=== PATIENT | male | born 1950 | race Caucasian/White ===

== ENCOUNTER 2016-10-24 19:28 | Observation (INO) | payer BC, OTHER ==
[~2016-10-24] VITALS: Ht 175.3 cm; Wt 82.0 kg
[2016-10-24] MEDS ORDERED: ACETAMINOPHEN 325 MG TAB PO PRN (20:00)
[2016-10-24] MEDS ORDERED: NITROGLYCERIN 0.4 MG SL PER TAB CHARGE SL PRN (20:00)
[2016-10-24] MEDS ORDERED: TNR25 PO (20:10)
--- NOTE | 2016-10-24 20:11 | DIAGNOSTIC IMAGING REPORT ---
CHEST ONE VIEW PORTABLE CLINICAL HISTORY: Chest pain COMPARISON STUDY: No previous studies for comparison. FINDINGS: The heart is normal in size. There is minor interstitial thickening. There is no lobar consolidation. There is no overt failure. There are no pleural effusions.[ Postsurgical changes involve the right coracoclavicular joint IMPRESSION: Minor interstitial thickening. No evidence of focal pulmonary consolidation. No evidence of overt failure. Electronically signed by: Dylan Bowers M.D. 10/24/2016 8:10 PM Dictated Date/Time: 10/24/2016 8:09 PM
[2016-10-24 20:25] LABS: HEMATOCRIT 37.8 % (42-52); MEAN CELL VOLUME 87.7 fL (80-100); MEAN CORPUSCULAR HEMOGLOBIN 31.3 pg (25-34); MEAN CORPUSCULAR HGB CONC 35.7 g/dl (32-36); MEAN PLATELET VOLUME 9.4 fL (7.4-10.4); PLATELET COUNT 207 K/uL (130-400); RED BLOOD COUNT 4.31 M/uL (4.7-6.1); WHITE BLOOD COUNT 7.27 K/uL (4.8-10.8)
[2016-10-24] MEDS ORDERED: IPRASOL4 INH (20:30)
[2016-10-24] MEDS ORDERED: ALBU18002 INH (20:30)
[2016-10-24] MEDS ORDERED: CRS10 PO (20:30)
[2016-10-24] MEDS ORDERED: HYDR-4079 PO (20:30)
[2016-10-24] MEDS ORDERED: IV FLUIDS COMPLETED PRN (20:30)
[2016-10-24] MEDS ORDERED: IPRA1AER2 INH (20:30)
[2016-10-24 20:44] VITALS: O2SAT 99; Ht 175.3 cm; Wt 82.0 kg
[2016-10-24 20:45] LABS: ALT/SGPT 24 U/L (12-78); AST/SGOT 16 U/L (15-37); BLOOD UREA NITROGEN 16 mg/dl (7-18); BUN/CREATININE RATIO 14.7 (10-20); CALCIUM 8.7 mg/dl (8.5-10.1); CARBON DIOXIDE 25 mmol/L (21-32); CHLORIDE 107 mmol/L (98-107); GLUCOSE 81 mg/dl (70-99); MAGNESIUM 2.3 mg/dl (1.8-2.4); POTASSIUM 3.9 mmol/L (3.5-5.1); SODIUM 141 mmol/L (136-145)
[2016-10-24] MEDS ORDERED: TAMS0.4C38 PO (20:45)
[2016-10-24] MEDS ORDERED: ASPI-232 PO (20:45)
[2016-10-24 20:48] LABS: PROTHROMBIN TIME (PATIENT) 10.8 SECONDS (9.0-12.0)
[2016-10-24 20:55] LABS: ALB/GLOB RATIO 1.2 (0.9-2); ALKALINE PHOSPHATASE 76 U/L (45-117); CKMB/CK RATIO 1.3 (0-3.0)
[2016-10-24 21:00] VITALS: BP 144/88; PULSE 76; TEMP 36.7; O2SAT 96
[2016-10-24] MEDS ORDERED: LEValbuterol HFA 15GM INHALER INH PRN (21:00)
--- NOTE | 2016-10-24 21:01 | History and Physical ---
History & Physical Date & Time of Service: Oct 24, 2016 at 20:30 Chief Complaint: Cardiac Assessment Primary Care Physician: No Doctor, Assigned History of Present Illness Source: patient, clinic records Patient seen and examined. 66 year old male with PMHx of CAD s/p Stent, HLD, HTN , and BPH is seen as a direct admission after transfer from [facility] for chest pain and afib with RVR. Patient reports that earlier today he was driving his car when he had sudden onset of substernal chest pressure that he described as someone stepping on his chest and rated as a 10/10. He states he had numbness/tingling down his right arm at that time. He reports that he had associated SOB and his friend said he appeared very pale. He pulled over to switch to the passenger seat and when he got out of the car he felt very dizzy. He presented to OSH ED and was given SL nitro and the pain resolved. At OSH patient was found to be in Afib with RVR. He received Aspirin, Potassium, Ativan and Nitro IV. He spontaneously converted to sinus rhythm. [facility] does not have a cardiology service and patient was transferred to [facility] for further workup. Patient reports he currently feels back at baseline. He states he has not had chest pain like this in the past. He reports a stent placed in 2008 and that he has not followed up with cardiology since then. He no longer takes aspirin. Patient reports he has been dealing with URI symptoms all winter. He reports cough with occasional sputum production and associated wheezing. He reports he has been on steroids, penicillin which have finished and continues to use nebulizers and inhalers. On arrival patient is resting comfortably, he is in Sinus rhythm. He denies fevers, chills, current chest pain, palpitations, nausea, vomiting, diarrhea, dysuria, calf pain and edema. He denies history of Afib. He is a lifelong nonsmoker. At OSH Elan were negative x 1, K+ was 3.5, repeat lab work, EKG, CXR are pending. He will be observed for further workup and treatment. Past Medical/Surgical History Medical Problems: (1) BPH (benign prostatic hyperplasia) Status: Chronic (2) CAD (coronary artery disease) Status: Chronic (3) History of left heart catheterization (LHC) Status: Chronic (4) HLD (hyperlipidemia) Status: Chronic (5) HTN (hypertension) Status: Chronic Surgical Problems: (1) H/O shoulder surgery Status: Chronic (2) History of cranial surgery Status: Chronic (3) History of lumbar fusion Status: Chronic (4) S/P surgical manipulation of ankle joint Status: Chronic (5) Stented coronary artery Permanent Comment: 12/2008. Dr. Jean Carlos Galicia Status: Chronic Family History FH: heart disease FATHER ( of [place] age 73) MOTHER ( at age 68) Stroke BROTHER, Onset:60 years & older Social History Smoking Status: Never Smoker Alcohol Use: occasionally Marital Status: Housing status: lives with family Occupational Status: employed Allergies Coded Allergies: No Known Allergies (Unverified , 10/24/16) Home Medications Scheduled Atenolol (Atenolol), 25 MG PO DAILY Ipratropium-Albuterol (Combivent Respimat), 1 PUFFS INH QID Rosuvastatin Calcium (Crestor), 10 MG PO DAILY Scheduled PRN Albuterol Sulfate (Proair Respiclick), 2 PUFFS INH Q4H PRN for SOB/Wheezing Hydrocodone/Acetaminophen 10MG/325MG ([place] 10MG/325MG), 1 TAB PO Q4H PRN for Pain Ipratropium-Albuterol (Duoneb), 1 TREATMENT INH Q4H PRN for SOB/Wheezing Review of Systems Constitutional: No chills, No fever Eyes: No worsening of vision ENT: + nasal symptoms Respiratory: + cough, + shortness of breath, + sputum, + wheezing Cardiovascular: + chest pain, No edema, No palpitations Abdomen: No constipation, No diarrhea, No nausea, No pain, No vomiting Musculoskeletal: No calf pain, No swelling Genitourinary - Male: No dysuria Neurologic: + numbness/tingling, + vertigo Psychiatric: No depression symptoms Endocrine: No fatigue Hematologic / Lymphatic: No abnormal bleeding/bruising, No clotting problems Integumentary: No itch, No rash Allergic / Immunologic: No environmental allergies Physical Exam Vital Signs Date Time Temp Pulse Resp B/P Pulse Ox O2 Delivery O2 Flow Rate FiO2 10/24/16 19:45 73 10/24/16 19:44 99 Nasal Cannula 2.0 10/24/16 19:36 36.5 72 20 132/89 100 Nasal Cannula 2.0 10/24/16 19:36 96 Room Air General Appearance: + pertinent finding (Very pleasant WD/WN 66 year old male lying in bed in NAD ) Head: normocephalic, atraumatic Eyes: PERRL, EOMI, sclerae normal ENT: hearing grossly normal, pharynx normal Neck: supple, no JVD, trachea midline Respiratory/Chest: no respiratory distress, no accessory muscle use, + pertinent finding (Chest tender to palpation sternal area, trace scattered end expiratory wheezes noted. ) Cardiovascular: regular rate, rhythm, no edema, no gallop, no JVD, no murmur, normal peripheral pulses Abdomen/GI: normal bowel sounds, non tender Back: normal inspection, no muscle spasm Extremities/Musculoskelatal: no calf tenderness, normal capillary refill, no pedal edema Neurologic/Psych: alert, oriented x 3, + pertinent finding (no motor or sensory deficits noted on gross exam ) Skin: normal color, warm/dry, no rash Lymphatic: no adenopathy Diagnostics Laboratory Results Last 24 Hours Test 10/24/16 20:13 White Blood Count 7.27 K/uL Red Blood Count 4.31 M/uL Hemoglobin 13.5 g/dL Hematocrit 37.8 % Mean Corpuscular Volume 87.7 fL Mean Corpuscular Hemoglobin 31.3 pg Mean Corpuscular Hemoglobin Concent 35.7 g/dl RDW Standard Deviation 40.7 fL RDW Coefficient of Variation 12.7 % Platelet Count 207 K/uL Mean Platelet Volume 9.4 fL Prothrombin Time 10.8 SECONDS Prothromb Time International Ratio 1.0 Activated Partial Thromboplast Time 26.4 SECONDS Partial Thromboplastin Ratio 1.0 Sodium Level 141 mmol/L Potassium Level 3.9 mmol/L Chloride Level 107 mmol/L Carbon Dioxide Level 25 mmol/L Anion Gap 9.0 mmol/L Blood Urea Nitrogen 16 mg/dl Creatinine 1.10 mg/dl Est Creatinine Clear Calc Drug Dose 72.7 ml/min Estimated GFR () 80.6 Estimated GFR (Non- 69.6 BUN/Creatinine Ratio 14.7 Random Glucose 81 mg/dl Calcium Level 8.7 mg/dl Magnesium Level 2.3 mg/dl Total Bilirubin 0.7 mg/dl Aspartate Amino Transf (AST/SGOT) 16 U/L Alanine Aminotransferase (ALT/SGPT) 24 U/L Alkaline Phosphatase 76 U/L Total Creatine Kinase 163 U/L Creatine Kinase MB 2.2 ng/ml Creatine Kinase MB Ratio 1.3 Troponin I < 0.015 ng/ml Total Protein 6.8 gm/dl Albumin 3.7 gm/dl Globulin 3.1 gm/dl Albumin/Globulin Ratio 1.2 Thyroid Stimulating Hormone (TSH) 1.440 uIu/ml Diagnostic Radiology CXR Per radiologist read: IMPRESSION: Minor interstitial thickening. No evidence of focal pulmonary consolidation. No evidence of overt failure. EKG Sinus Rhythm with 1st degree AV block 73 BPM, QTc 438, no acute ischemic changes noted Impression Assessment and Plan 66 year old male presents from OSH with new onset afib and severe substernal chest pain requiring IV nitro. Patient converted to SR prior to arrival, currently chest pain free CHEST PAIN R/O ACS -Observation in tele -Risk factors:Known CAD s/p stent, HTN, HLD, Age -Has been noncompliant with Aspirin, for at least a year - resume Aspirin now -Serial Elan and EKGs -Elan negative at OSH, repeat pending -Fasting lipid panel in AM -Echo pending to r/o heart wall abnormality -Nitro,prn chest pain -Cardiology consult for further management input appreciated -AHA diet -CBC, PRP, Mg daily -VSS stable, monitor in tele NEW ONSET ATRIAL FIBRILLATION -in Afib with RVR at OSH -converted to NSR -no history of afib previously -[id number] score 3 -will started on Lovenox 1mg/kg for now -Continue atenolol -monitor in tele -cardiology consult placed for further recommendations -Repeat PRP pending to evaluated electrolytes -TSH pending RECENT ACUTE BRONCHITIS -finished steroids and penicillin at home -still some wheezing -no history of asthma/tobacco abuse -Will give Levalbuterol inhalers prn - avoid additional nebs/inhalers d/t recent afib HTN -stable -continue Atenolol HLD -continue statin BPH -has not been taking Flomax in several months CODE STATUS: FULL CODE DVT PROPHYLAXIS: Lovenox 1mg/kg DISPO:observation pending further workup Patient seen in collaboration with Dr. Hines VTE Prophylaxis VTE Risk Assessment Done? Y/N: Yes Risk Level: Moderate Note ATTENDING ADDENDUM Record reviewed. Patient interviewed and examined in ED. Care coordinated with Josiane Rainey PA-C. Please refer to her documentation for patient's history. Briefly, 66 YO male with history of coronary artery disease, s/p PCI @ [facility] 2008. Presented to ED at [facility] today with chest pain + rapid AF. Placed on IV NTG for chest pain. K was 3.5. Received KCl 40 mEq PO. Converted to NSR. [facility] unable to accept patient in transfer, so pt was transferred to [facility]. Chest-pain free upon arrival. EXAM: General- no acute distress VS- as noted Neck- no JVD; carotids 2/2 Lungs- diffuse wheezing Heart- RRR, no murmur or gallop appreciated Abdomen- + BS, soft, nontender Extremities- no pretibial edema or calf tenderness; radial pulses symmetric Neuro- alert, oriented DATA: Lab studies as noted. CXR- mild interstitial thickening. EKG performed at [facility] @ 14:44 reviewed and demonstrated AF at 130 / minute, lateral ST depression. EKG performed at [facility] @ 15:25 reviewed and demonstrated NSR at 85 / minute, no significant ST or T-wave changes. EKG performed at [facility] @ 19:38 reviewed and demonstrated NSR at 73 / minute, no significant T or T-wave changes. . ASSESSMENT AND PLAN: CAD / CHEST PAIN Known coronary artery disease, s/p PCI. Has not had regular Cardiology follow-up. Has not been taking aspirin for some time, although he has been taking atenolol and statin. Suspect that chest pain today was angina precipitated by rapid AF. Check serial cardiac markers. Rx with aspirin, atenolol, statin. Consult Cardiology. He has been followed in the past by Cardiology @ [facility], but would like to establish with [facility]iology at [facility]. ATRIAL FIBRILLATION New onset atrial fibrillation with rapid ventricular response. Serum K 3.5; received KCl replacement. Converted to NSR. TSH and magnesium OK. Continue atenolol. Anticoagulate with enoxaparin pending more data. Check echo. Using albuterol inhaler and Duonebs for wheezing- may be contributing factor. Consult Cardiology. BRONCHOSPASM Nonproductive cough and wheezing for several weeks, treated with antibiotics and steroids. No history of asthma or COPD. Albuterol inhaler and Duonebs may be contributing to AF. Switch to levalbuterol MDI. Please refer to DARLINE Rainey's documentation for discussion of other issues. Rashawn Hines MD .
[2016-10-24] MEDS: ENOXAPARIN 100 MG/1ML SYR SQ SCH (22:10)
[2016-10-24] MEDS: HYDROCODONE/ACETAMI 10/325 TAB PO PRN (22:16)
[2016-10-24 23:39] VITALS: BP 110/65; PULSE 82; TEMP 36.6; O2SAT 96
[2016-10-25 04:07] VITALS: BP 102/60; PULSE 78; TEMP 36.6; O2SAT 95
[2016-10-25 07:19] VITALS: BP 105/64; PULSE 71; TEMP 36.4; O2SAT 95
[2016-10-25 07:22] LABS: CKMB/CK RATIO 1.4 (0-3.0)
[2016-10-25] MEDS ORDERED: TAMSULOSIN HCL 0.4 MG CAP PO SCH (09:00)
[2016-10-25] MEDS: ROSUVASTATIN CALCIUM 10 MG TAB PO SCH (09:09)
[2016-10-25] MEDS: ASPIRIN 81 MG ECTAB PO SCH (09:10)
[2016-10-25] MEDS: ENOXAPARIN 100 MG/1ML SYR SQ SCH (09:11)
[2016-10-25] MEDS: HYDROCODONE/ACETAMI 10/325 TAB PO PRN ×3 (09:15→20:01)
--- NOTE | 2016-10-25 10:37 | CARDIOLOGY CONSULTATION ---
DATE OF CONSULTATION: 10/25/2016 REFERRING PHYSICIAN: Dr. Rashawn Hines. REASON FOR CONSULTATION: Atrial fibrillation, chest pain. HISTORY OF PRESENT ILLNESS: Mr. Vitale is a 66-year-old gentleman who was transferred from [facility] with paroxysmal atrial fibrillation and chest discomfort. The patient developed substernal chest pain while driving his car in the evening 10/24/2016. The pain became quite severe, rated 10/10 with associated shortness of breath and lightheadedness. He presented to [facility] and was treated with aspirin, potassium, Ativan and nitroglycerin. He spontaneously converted to sinus rhythm. He has been pain free since his admission. His troponins are not significantly elevated. Symptoms lasted a total of 25 minutes according to the patient. Recently, he describes some worsening exertional shortness of breath and substernal chest pain with exertion over the past 3-4 weeks. Particularly notes discomfort when he has to climb stairs carrying 2 x 4's. The discomfort caused him to stop and rest. He has run out of sublingual nitroglycerin. He has not followed with cardiology in several years. Currently, pain free. Sinus rhythm on telemetry. No orthopnea or PND. No prior history of congestive heart failure or cardiomyopathy. REVIEW OF SYSTEMS: The pertinent positive noted above, a comprehensive 10-system review is otherwise negative. PAST MEDICAL HISTORY: 1. Chronic coronary disease, history of prior LAD stenting in the setting of exertional angina in 2008. 2. BPH. 3. Dyslipidemia. 4. Hypertension. PAST SURGICAL HISTORY: Shoulder surgery, cranial surgery, lumbar fusion, ankle surgery, LAD RON 2008. FAMILY HISTORY: Father at age 73 from myocardial infarction, brother with stroke in his 60s. SOCIAL HISTORY: Lifelong nonsmoker, denies alcohol or illicit drug use. 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 ALLERGIES: No known drug allergies. HOME MEDICATIONS: 1. Atenolol 25 mg daily. 2. Combivent 1 puff 4 times. 3. Crestor 10 mg daily. 4. Albuterol as needed. 5. [place] as needed. 6. DuoNeb q. 4 hours as needed. 7. Aspirin -- not taking. ECG reviewed from [facility] demonstrates atrial fibrillation with rapid ventricular response. Repeat ECG performed this morning at 8:00 a.m. demonstrates sinus rhythm with a first degree AV block. IMAGING DATA: Chest x-ray demonstrates mild interstitial thickening. No evidence of consolidation or overt congestive heart failure. LABORATORY DATA: Initial troponin less than 0.015, repeat troponin 0.017. Sodium 141, potassium 3.9, chloride 107, CO2 is 25, BUN is 16, creatinine is 1.10. Triglycerides of 304. Total cholesterol 109. His LDL is 12, HDL is 36. TSH 1.440. INR 1.0. White blood cell count 7.27, hemoglobin is 13.5, platelet count is 207. PHYSICAL EXAMINATION: VITAL SIGNS: Temperature is 36.4 degrees centigrade, pulse 71 beats per minute and regular, respiratory rate is 18 breaths per minute, blood pressure 105/64, SaO2 is 95% on room air. GENERAL: NAD, awake, alert and oriented x3. THROAT: His mucous membranes are moist. There is no scleral icterus. The conjunctivae are pink. NECK: Supple. There is no JVD, no HJR carotid bruit. HEART: Regular with a normal S1 and S2. There is no murmur, rub, or gallop. LUNGS: Clear without rales, rhonchi or wheeze. ABDOMEN: Soft, nontender. There is no rebound or guarding. Normal bowel sounds. EXTREMITIES: Warm and dry. There is no clubbing, cyanosis, or edema. NEUROLOGIC: Demonstrates no focal deficit. FINAL IMPRESSION: 1. A 66-year-old male presents with paroxysmal atrial fibrillation with rapid ventricular response. 2. Chronic coronary artery disease with exertional class 2-3 angina as well as significant angina reported during recent episode of atrial fibrillation with rapid ventricular response. History of prior drug-eluting stent implantation to left anterior descending artery. 3. Obesity. 4. Dyslipidemia. 5. Hypertension. 6. Reactive airways disease. 7. Noncompliance of medications. PLAN AND RECOMMENDATIONS: I had a long discussion with the patient regarding his new onset AFib, exertional symptoms, and chest discomfort associated with his episode of AFib with RVR. I am concerned there is progressive obstructive CAD. His cardiac enzymes are negative x 2 sets. Recommend diagnostic cardiac catheterization. Risk, benefits and alternatives were discussed in detail. The patient is agreeable. We would recommend bare metal stenting at this time given the need for long-term anticoagulation in the setting of new onset atrial fibrillation. He received a dose of subcutaneous Lovenox this morning, therefore, the procedure will be postponed. I will discontinue lovenox and begin IV heparin infusion this evening. Further recommendations regarding Coumadin versus DOAC pending results of cardiac catheterization. I will increase atenolol to 50 mg daily. I have also given an additional 25 mg of atenolol at this time. Thank you for allowing me to take part in the care of your patient. [place]
[2016-10-25 11:31] VITALS: BP 117/75; PULSE 70; TEMP 36.4; O2SAT 93
--- NOTE | 2016-10-25 11:50 | ECHOCARDIOGRAM REPORT ---
*NOTICE TO RECEIVING CONSTITUTION PARTY AGENCY This information is strictly Confidential and protected under [place] law. [place] law prohibits you from making any further disclosure of this information unless further disclosure is expressly permitted by the written consent of the person to whom it pertains or is authorized by law. A general authorization for the release of medical or other information is not sufficient for this purpose. Hospital accepts no responsibility if the information is made available to any other person, INCLUDING THE PATIENT. Interpretation Summary * Name: ALEX GUY Study Date: 10/25/2016 10:42 AM BP: 105/64 mmHg * Patient Location: C.2T\S\E215\S\1 HR: 71 * : 1950 (M/d/yyyy) Gender: Male Height: 69 in * Age: 66 yrs Ethnicity: CA Weight: 195 lb * Ordering Physician: Jed Moore * Performed By: Almaz Mckeon RDCS * * Reason For Study: Atrial fibrillation * BSA: 2.0 m2 * The study was technically adequate. * There is no comparison study available. * -- Conclusions -- * Ejection Fraction = 55-60%. * There is mild concentric left ventricular hypertrophy. * Grade I diastolic dysfunction, (abnormal relaxation pattern). * Borderline dilated ascending aorta. * No regional wall motion abnormalities noted. Procedure Details * A complete two-dimensional transthoracic echocardiogram was performed (2D, M-mode, Doppler and color flow Doppler). Left Ventricle * The left ventricle is normal in size. * There is mild concentric left ventricular hypertrophy. * Ejection Fraction = 55-60%. * Left ventricular systolic function is normal. * No regional wall motion abnormalities noted. Right Ventricle * The right ventricle is normal size. * The right ventricular systolic function is normal as assessed by tricuspid annular plane systolic excursion (TAPSE) (normal >1.5 cm). Atria * The left atrial size is normal. * Right atrial size is normal. * There is no evidence of atrial septal defect, but resolution does not allow assessment for a patent foramen ovale. Mitral Valve * The mitral valve is normal. * There is no mitral valve stenosis. * Significant mitral regurgitation is absent. Tricuspid Valve * The tricuspid valve is normal. * There is no tricuspid stenosis. * Significant tricuspid regurgitation is absent. Aortic Valve * The aortic valve is trileaflet. * Aortic stenosis is absent. * There is no significant aortic regurgitation. Pulmonic Valve * The pulmonary valve is not well seen, but the Doppler examination is normal without significant regurgitation or stenosis. Great Vessels * The aortic root is normal size. * Borderline dilated ascending aorta. Pericardium/Pleural * There is no pericardial effusion. Great Vessels * Normal inferior vena cava diameter and respiratory variation suggests normal central venous pressure. Left Ventricular Diastolic Function * Grade I diastolic dysfunction, (abnormal relaxation pattern). MMode 2D Measurements and Calculations IVSd 1.4 cm LVIDd 4.1 cm LVIDs 2.6 cm LVPWd 1.2 cm IVS/LVPW 1.1 FS 36.4 % EDV(Teich) 75.6 ml ESV(Teich) 25.3 ml EF(Teich) 66.6 % EDV(cubed) 70.6 ml ESV(cubed) 18.2 ml EF(cubed) 74.3 % LV mass(C)d 195.9 grams LV mass(C)dI 95.9 grams/m\S\2 CO(Teich) 3.3 l/min CI(Teich) 1.6 l/min/m\S\2 SV(Teich) 50.4 ml SI(Teich) 24.6 ml/m\S\2 CO(cubed) 3.5 l/min CI(cubed) 1.7 l/min/m\S\2 SV(cubed) 52.4 ml SI(cubed) 25.7 ml/m\S\2 Ao root diam 3.7 cm Ao root area 10.6 cm\S\2 ACS 2.0 cm LA dimension 2.8 cm asc Aorta Diam 3.8 cm LA/Ao 0.76 LVOT diam 2.0 cm LVOT area 3.3 cm\S\2 LVAd ap4 33.9 cm\S\2 LVLd ap4 8.6 cm EDV(MOD-sp4) 108.0 ml LVAs ap4 18.8 cm\S\2 LVLs ap4 6.8 cm ESV(MOD-sp4) 42.0 ml EF(MOD-sp4) 61.1 % LVAd ap2 24.6 cm\S\2 LVLd ap2 7.8 cm EDV(MOD-sp2) 62.8 ml LVAs ap2 13.5 cm\S\2 LVLs ap2 6.3 cm ESV(MOD-sp2) 23.9 ml EF(MOD-sp2) 61.9 % CO(MOD-sp4) 4.4 l/min CI(MOD-sp4) 2.1 l/min/m\S\2 SV(MOD-sp4) 66.0 ml SI(MOD-sp4) 32.3 ml/m\S\2 CO(MOD-sp2) 2.6 l/min CI(MOD-sp2) 1.3 l/min/m\S\2 SV(MOD-sp2) 38.9 ml SI(MOD-sp2) 19.0 ml/m\S\2 Doppler Measurements and Calculations MV E max roly 88.3 cm/sec MV A max roly 83.3 cm/sec MV E/A 1.1 MV dec time 0.24 sec Ao V2 max 110.2 cm/sec Ao max PG 4.9 mmHg Ao max PG (full) 1.1 mmHg DOMO(V,A) 2.9 cm\S\2 DOMO(V,D) 2.9 cm\S\2 LV V1 max PG 3.8 mmHg LV V1 max 97.5 cm/sec PA V2 max 82.4 cm/sec PA max PG 2.7 mmHg PA acc slope 348.8 cm/sec\S\2 PA acc time 0.17 sec TR max roly 102.6 cm/sec PA pr(Accel) 4.5 mmHg
[2016-10-25 15:18] VITALS: BP 111/64; PULSE 71; TEMP 36.5; O2SAT 95
[2016-10-25] MEDS ORDERED: ALBUTEROL HFA 8 GM INHALER INH PRN (16:00)
--- NOTE | 2016-10-25 18:49 | Progress Note ---
Medicine Progress Note Date & Time of Visit: Oct 25, 2016 at 18:40. Subjective Patient seen and examined. Feeling well. Denies chest pain/pressure. Requesting albuterol inhaler prn. Objective Last 8 Hrs Date Time Temp Pulse Resp B/P Pulse Ox O2 Delivery O2 Flow Rate FiO2 10/25/16 16:00 Room Air 10/25/16 15:18 36.5 71 18 111/64 95 Room Air 10/25/16 12:00 Room Air 10/25/16 11:31 36.4 70 18 117/75 93 Room Air Physical Exam: General-awake; alert; NAD Eyes-EOMI; no scleral icterus Neck-no stridor; trachea midline Lungs-scattered end expiratory wheezes Heart-RRR; no m/r/g Abdomen-soft; NTND; nBS Extremities-no c/c/e; no deformity Neuro-no gross focal deficits Laboratory Results: Last 24 Hours Test 10/24/16 20:13 10/25/16 05:51 White Blood Count 7.27 K/uL Red Blood Count 4.31 M/uL Hemoglobin 13.5 g/dL Hematocrit 37.8 % Mean Corpuscular Volume 87.7 fL Mean Corpuscular Hemoglobin 31.3 pg Mean Corpuscular Hemoglobin Concent 35.7 g/dl RDW Standard Deviation 40.7 fL RDW Coefficient of Variation 12.7 % Platelet Count 207 K/uL Mean Platelet Volume 9.4 fL Prothrombin Time 10.8 SECONDS Prothromb Time International Ratio 1.0 Activated Partial Thromboplast Time 26.4 SECONDS Partial Thromboplastin Ratio 1.0 Sodium Level 141 mmol/L Potassium Level 3.9 mmol/L Chloride Level 107 mmol/L Carbon Dioxide Level 25 mmol/L Anion Gap 9.0 mmol/L Blood Urea Nitrogen 16 mg/dl Creatinine 1.10 mg/dl Est Creatinine Clear Calc Drug Dose 72.7 ml/min Estimated GFR () 80.6 Estimated GFR (Non- 69.6 BUN/Creatinine Ratio 14.7 Random Glucose 81 mg/dl Calcium Level 8.7 mg/dl Magnesium Level 2.3 mg/dl Total Bilirubin 0.7 mg/dl Aspartate Amino Transf (AST/SGOT) 16 U/L Alanine Aminotransferase (ALT/SGPT) 24 U/L Alkaline Phosphatase 76 U/L Total Creatine Kinase 163 U/L 136 U/L Creatine Kinase MB 2.2 ng/ml 1.9 ng/ml Creatine Kinase MB Ratio 1.3 1.4 Troponin I < 0.015 ng/ml 0.017 ng/ml Total Protein 6.8 gm/dl Albumin 3.7 gm/dl Globulin 3.1 gm/dl Albumin/Globulin Ratio 1.2 Thyroid Stimulating Hormone (TSH) 1.440 uIu/ml Hepatitis C Antibody Screen NEG Triglycerides Level 304 mg/dl Cholesterol Level 109 mg/dl HDL Cholesterol 36 mg/dl LDL Cholesterol, Calculated 12 mg/dl VLDL Cholesterol, Calculated 61 mg/dl Cholesterol/HDL Ratio 3.0 Assessment & Plan 66 year old male presents from OSH with new onset afib and severe substernal chest pain requiring IV nitro. Patient converted to SR prior to arrival, currently chest pain free CHEST PAIN, H/O CAD -Has been noncompliant with Aspirin, for at least a year - resumed Aspirin -ACS r/o negative -Echo with no regional wall motion abnormalities -Nitro prn chest pain -Cardiology consulted -Plan for heart catheterization on Friday NEW ONSET ATRIAL FIBRILLATION -in Afib with RVR at OSH -converted to NSR -no history of afib previously -[id number] score 3 -Received Lovenox --> change to heparin drip -Atenolol increased -Cardiology consulted -TSH normal RECENT ACUTE BRONCHITIS -finished steroids and penicillin at home -no history of asthma/tobacco abuse -continue albuterol inhaler prn HTN -Atenolol increased HLD -Continue statin BPH -has not been taking Flomax in several months CODE STATUS: FULL CODE Consultants: Cardiology Procedures: TTE * Ejection Fraction = 55-60%. * There is mild concentric left ventricular hypertrophy. * Grade I diastolic dysfunction, (abnormal relaxation pattern). * Borderline dilated ascending aorta. * No regional wall motion abnormalities noted. Current Inpatient Medications: Current Inpatient Medications Medications (Trade) Dose Ordered Sig/Robe Route Start Time Stop Time Status Last Admin Dose Admin Acetaminophen (Tylenol Tab) 650 mg Q4H PRN PO 10/24/16 20:00 11/23/16 19:59 Nitroglycerin (Nitrostat Tab) 0.4 mg UD PRN SL 10/24/16 20:00 11/23/16 19:59 Miscellaneous (Iv Fluids Completed) 1 ea PRN PRN N/A 10/24/16 20:30 10/24/17 20:29 Aspirin (Ecotrin Tab) 81 mg DAILY PO 10/25/16 09:00 11/24/16 08:59 10/25/16 09:10 81 MG Acetaminophen/ Hydrocodone Bitart ([place] 10/325 Tab) 1 tab Q4H PRN PO 10/24/16 20:45 11/07/16 20:44 10/25/16 13:46 1 TAB Rosuvastatin Calcium (Crestor Tab) 10 mg DAILY PO 10/25/16 09:00 11/24/16 08:59 10/25/16 09:09 10 MG Enoxaparin Sodium (Lovenox Inj) 90 mg Q12 SQ 10/24/16 21:00 11/23/16 20:59 10/25/16 09:11 90 MG Atenolol (Tenormin Tab) 50 mg DAILY PO 10/26/16 09:00 11/25/16 08:59 Albuterol (Ventolin Hfa Inhaler) 2 puffs Q6 PRN INH 10/25/16 16:00 11/24/16 15:59
[2016-10-25 18:53] VITALS: BP 113/69; PULSE 67; TEMP 36.5; O2SAT 95
[2016-10-25 19:30] LABS: BASO % 0.6 %; BASO ABS # 0.04 K/uL (0-0.2); EOS % 10.2 %; HEMATOCRIT 36.9 % (42-52); IG% 0.2 %; LYMPH % 34.6 %; LYMPH ABS # 2.21 K/uL (1.2-3.4); MEAN CELL VOLUME 86.8 fL (80-100); MEAN CORPUSCULAR HEMOGLOBIN 31.1 pg (25-34); MEAN PLATELET VOLUME 9.1 fL (7.4-10.4); MONO % 8.6 %; NEUT % 45.8 %; PLATELET COUNT 197 K/uL (130-400); RED BLOOD COUNT 4.25 M/uL (4.7-6.1); WHITE BLOOD COUNT 6.39 K/uL (4.8-10.8)
[2016-10-25 19:32] LABS: COMPLETE YES; MEAN CORPUSCULAR HGB CONC 35.8 g/dl (32-36)
[2016-10-25 19:42] LABS: PARTIAL THROMBOPLASTIN RATIO 1.2; PROTHROMBIN TIME (PATIENT) 10.6 SECONDS (9.0-12.0)
[2016-10-25] MEDS: HEPARIN 25,000 UNIT/500ML D5W 500 ML IV PRN (21:13)
[2016-10-25 23:30] VITALS: BP 112/72; PULSE 82; TEMP 36.7; O2SAT 97
[2016-10-26] VITALS (9 sets, daily range): BP systolic 114–135; BP diastolic 68–75; PULSE 62–72; TEMP 36.4–36.9; O2SAT 93–98
[2016-10-26] MEDS: HYDROCODONE/ACETAMI 10/325 TAB PO PRN ×2 (03:05→07:18)
[2016-10-26 03:30] LABS: HEMATOCRIT 36.8 % (42-52); MEAN CELL VOLUME 86.8 fL (80-100); MEAN CORPUSCULAR HEMOGLOBIN 31.4 pg (25-34); MEAN CORPUSCULAR HGB CONC 36.1 g/dl (32-36); MEAN PLATELET VOLUME 9.4 fL (7.4-10.4); PLATELET COUNT 204 K/uL (130-400); RED BLOOD COUNT 4.24 M/uL (4.7-6.1); WHITE BLOOD COUNT 7.45 K/uL (4.8-10.8)
[2016-10-26 03:52] LABS: PARTIAL THROMBOPLASTIN RATIO 1.8
[2016-10-26 03:53] LABS: BUN/CREATININE RATIO 13.2 (10-20); CALCIUM 8.2 mg/dl (8.5-10.1); CREATININE 1.1 mg/dl (0.60-1.40)
[2016-10-26] MEDS ORDERED: HEPARIN IV BOLUS 3,000 UNIT in SYRINGE 0 ML IV STA (04:21)
[2016-10-26] MEDS: HEPARIN 25,000 UNIT/500ML D5W 500 ML IV PRN ×2 (04:28→14:50)
[2016-10-26] MEDS: ROSUVASTATIN CALCIUM 10 MG TAB PO SCH (07:15)
[2016-10-26] MEDS: ASPIRIN 81 MG ECTAB PO SCH (07:16)
--- NOTE | 2016-10-26 09:18 | Cardiology Follow-Up ---
Subjective General Date of Service: Oct 26, 2016. Pt evaluation today including: conversation w/ patient, physical exam, chart review, lab review, review of studies, review of inpatient medication list History of Present Illness The patient is a 66 year old male seen in follow up. Feels well today. No recurrent chest discomfort at rest. No recurrent AF on telemetry. Tolerating diet and medications. Allergies Coded Allergies: No Known Allergies (Unverified , 10/24/16) Social History Smoking Status: Never Smoker Hx Alcohol Use - Type And Amou: Yes (OCC BEER ) Hx Substance Use - Type And Am: No Review of Systems Respiratory: No cough, No dyspnea at rest, No dyspnea on exertion, No shortness of breath, No sputum, No wheezing Cardiac: No PND, No chest pain, No claudication, No edema, No orthopnea, No palpitations Physical Exam Vital Signs Last Vital Signs Documentation Date Time Temp Pulse Resp B/P Pulse Ox O2 Delivery O2 Flow Rate FiO2 10/26/16 09:07 93 Room Air 10/26/16 07:20 36.5 67 18 115/72 10/24/16 20:44 2.0 Physical Exam Constitutional: General Apperance: well-nourished Level of Distress: NAD Head: normocephalic, atraumatic ENMT: normal ENT inspection Lungs: Auscultation: no rales/crackles, no rhonchi, expiratory wheezing Cardiovascular: Heart Auscultation: RRR, normal S1, normal S2, no murmurs, no rubs, no gallops Peripheral Pulses: Radial Pulse: normal on the left, normal on the right Femoral Pulse: normal on the right Abdomen: Bowel Sounds: normal Inspection & Palpation: soft, non-distended, no tenderness, guarding & rebound Extremities: no cyanosis, no edema, no clubbing, no ulcers Neurologic: Gait & Station: pertinent finding (No focal motor deficit) Cranial Nerves: grossly intact Assessment and Plan Assessment and Plan FINAL IMPRESSION: 1. Paroxysmal atrial fibrillation with rapid ventricular response. - resolved 2. Chronic coronary artery disease, prior LAD RON with exertional class 2-3 angina as well as significant angina reported during recent episode of atrial fibrillation with rapid ventricular response. 3. Obesity. 4. Dyslipidemia. 5. Hypertension. 6. Reactive airways disease. 7. Noncompliance of medications. PLAN AND RECOMMENDATIONS: Continue IV heparin, aspirin, statin, and beta randy. Cardiac catheterization friday. DOAC vs. coumadin pending result of catheterization. Continue telemetry. Will continue to follow. Laboratory Results Last 24 Hours Test 10/25/16 19:21 10/26/16 03:00 White Blood Count 6.39 K/uL 7.45 K/uL Red Blood Count 4.25 M/uL 4.24 M/uL Hemoglobin 13.2 g/dL 13.3 g/dL Hematocrit 36.9 % 36.8 % Mean Corpuscular Volume 86.8 fL 86.8 fL Mean Corpuscular Hemoglobin 31.1 pg 31.4 pg Mean Corpuscular Hemoglobin Concent 35.8 g/dl 36.1 g/dl Platelet Count 197 K/uL 204 K/uL Mean Platelet Volume 9.1 fL 9.4 fL Neutrophils (%) (Auto) 45.8 % Lymphocytes (%) (Auto) 34.6 % Monocytes (%) (Auto) 8.6 % Eosinophils (%) (Auto) 10.2 % Basophils (%) (Auto) 0.6 % Neutrophils # (Auto) 2.93 K/uL Lymphocytes # (Auto) 2.21 K/uL Monocytes # (Auto) 0.55 K/uL Eosinophils # (Auto) 0.65 K/uL Basophils # (Auto) 0.04 K/uL RDW Standard Deviation 40.5 fL 40.1 fL RDW Coefficient of Variation 12.6 % 12.5 % Immature Granulocyte % (Auto) 0.2 % Immature Granulocyte # (Auto) 0.01 K/uL Prothrombin Time 10.6 SECONDS Prothromb Time International Ratio 1.0 Activated Partial Thromboplast Time 30.8 SECONDS 46.2 SECONDS Partial Thromboplastin Ratio 1.2 1.8 Sodium Level 141 mmol/L Potassium Level 4.0 mmol/L Chloride Level 106 mmol/L Carbon Dioxide Level 29 mmol/L Anion Gap 6.0 mmol/L Blood Urea Nitrogen 15 mg/dl Creatinine 1.10 mg/dl Est Creatinine Clear Calc Drug Dose 72.8 ml/min Estimated GFR () 80.6 Estimated GFR (Non- 69.6 BUN/Creatinine Ratio 13.2 Random Glucose 93 mg/dl Calcium Level 8.2 mg/dl Chemistry Specimen Hemolysis
[2016-10-26 11:30] LABS: PARTIAL THROMBOPLASTIN RATIO 2.5
[2016-10-26] MEDS ORDERED: POLYETHYLENE (MIRALAX) 17 GM PACK PO PRN (15:30)
--- NOTE | 2016-10-26 16:40 | Progress Note ---
Medicine Progress Note Date & Time of Visit: Oct 26, 2016 at 16:38. Subjective Patient seen and examined. Denies chest pain/pressure. Occasionally feeling SOB. Objective Last 8 Hrs Date Time Temp Pulse Resp B/P Pulse Ox O2 Delivery O2 Flow Rate FiO2 10/26/16 16:18 93 Room Air 10/26/16 15:42 36.4 69 19 128/74 95 Room Air 10/26/16 12:09 93 Room Air 10/26/16 11:20 36.7 67 18 118/75 93 Room Air 10/26/16 09:07 93 Room Air Physical Exam: General-awake; alert; NAD Eyes-EOMI; no scleral icterus Neck-no stridor; trachea midline Lungs-CTA bilaterally; no wheezes/crackles Heart-RRR; no m/r/g Abdomen-soft; NTND; nBS Extremities-no c/c/e; no deformity Neuro-no gross focal deficits Laboratory Results: Last 24 Hours Test 10/25/16 19:21 10/26/16 03:00 10/26/16 11:02 White Blood Count 6.39 K/uL 7.45 K/uL Red Blood Count 4.25 M/uL 4.24 M/uL Hemoglobin 13.2 g/dL 13.3 g/dL Hematocrit 36.9 % 36.8 % Mean Corpuscular Volume 86.8 fL 86.8 fL Mean Corpuscular Hemoglobin 31.1 pg 31.4 pg Mean Corpuscular Hemoglobin Concent 35.8 g/dl 36.1 g/dl Platelet Count 197 K/uL 204 K/uL Mean Platelet Volume 9.1 fL 9.4 fL Neutrophils (%) (Auto) 45.8 % Lymphocytes (%) (Auto) 34.6 % Monocytes (%) (Auto) 8.6 % Eosinophils (%) (Auto) 10.2 % Basophils (%) (Auto) 0.6 % Neutrophils # (Auto) 2.93 K/uL Lymphocytes # (Auto) 2.21 K/uL Monocytes # (Auto) 0.55 K/uL Eosinophils # (Auto) 0.65 K/uL Basophils # (Auto) 0.04 K/uL RDW Standard Deviation 40.5 fL 40.1 fL RDW Coefficient of Variation 12.6 % 12.5 % Immature Granulocyte % (Auto) 0.2 % Immature Granulocyte # (Auto) 0.01 K/uL Prothrombin Time 10.6 SECONDS Prothromb Time International Ratio 1.0 Activated Partial Thromboplast Time 30.8 SECONDS 46.2 SECONDS 65.3 SECONDS Partial Thromboplastin Ratio 1.2 1.8 2.5 Sodium Level 141 mmol/L Potassium Level 4.0 mmol/L Chloride Level 106 mmol/L Carbon Dioxide Level 29 mmol/L Anion Gap 6.0 mmol/L Blood Urea Nitrogen 15 mg/dl Creatinine 1.10 mg/dl Est Creatinine Clear Calc Drug Dose 72.8 ml/min Estimated GFR () 80.6 Estimated GFR (Non- 69.6 BUN/Creatinine Ratio 13.2 Random Glucose 93 mg/dl Calcium Level 8.2 mg/dl Chemistry Specimen Hemolysis Assessment & Plan 66 year old male presented from OSH with new onset afib and severe substernal chest pain requiring IV nitro. Patient converted to SR prior to arrival, remains chest pain free CHEST PAIN, H/O CAD -Has been noncompliant with Aspirin, for at least a year - resumed Aspirin -ACS r/o negative -Echo with no regional wall motion abnormalities -Nitro prn chest pain -Cardiology consulted -Plan for heart catheterization on Friday NEW ONSET ATRIAL FIBRILLATION -in Afib with RVR at OSH -converted to NSR -no history of afib previously -[id number] score 3 -Received Lovenox --> changed to heparin drip -Atenolol increased -Cardiology consulted -TSH normal RECENT ACUTE BRONCHITIS -finished steroids and penicillin at home -no history of asthma/tobacco abuse -continue albuterol inhaler prn HTN -Atenolol increased HLD -Continue statin BPH -has not been taking Flomax for several months CODE STATUS: FULL CODE Consultants: Cardiology Procedures: TTE * Ejection Fraction = 55-60%. * There is mild concentric left ventricular hypertrophy. * Grade I diastolic dysfunction, (abnormal relaxation pattern). * Borderline dilated ascending aorta. * No regional wall motion abnormalities noted. Current Inpatient Medications: Current Inpatient Medications Medications (Trade) Dose Ordered Sig/Robe Route Start Time Stop Time Status Last Admin Dose Admin Acetaminophen (Tylenol Tab) 650 mg Q4H PRN PO 10/24/16 20:00 11/23/16 19:59 Nitroglycerin (Nitrostat Tab) 0.4 mg UD PRN SL 10/24/16 20:00 11/23/16 19:59 Miscellaneous (Iv Fluids Completed) 1 ea PRN PRN N/A 10/24/16 20:30 10/24/17 20:29 Aspirin (Ecotrin Tab) 81 mg DAILY PO 10/25/16 09:00 11/24/16 08:59 10/26/16 07:16 81 MG Acetaminophen/ Hydrocodone Bitart ([place] 10/325 Tab) 1 tab Q4H PRN PO 10/24/16 20:45 11/07/16 20:44 10/26/16 07:18 1 TAB Rosuvastatin Calcium (Crestor Tab) 10 mg DAILY PO 10/25/16 09:00 11/24/16 08:59 10/26/16 07:15 10 MG Atenolol (Tenormin Tab) 50 mg DAILY PO 10/26/16 09:00 11/25/16 08:59 10/26/16 07:16 50 MG Albuterol 2 puffs 2 puffs Q6 PRN INH 10/25/16 16:00 11/24/16 15:59 Heparin Sodium/ Dextrose (Heparin 25,000 Unit/500ml D5W) 500 ml @ 31 mls/hr Q16H8M PRN IV 10/25/16 21:00 11/24/16 20:59 10/26/16 14:50 31 MLS/HR Polyethylene (Miralax Powder Packet) 17 gm DAILY PRN PO 10/26/16 15:30 11/25/16 15:29
[2016-10-27] VITALS (9 sets, daily range): BP systolic 100–133; BP diastolic 67–79; PULSE 58–68; TEMP 36.4–36.8; O2SAT 93–97
[2016-10-27 05:32] LABS: HEMATOCRIT 38.5 % (42-52); MEAN CELL VOLUME 85.6 fL (80-100); MEAN CORPUSCULAR HEMOGLOBIN 30.9 pg (25-34); MEAN CORPUSCULAR HGB CONC 36.1 g/dl (32-36); MEAN PLATELET VOLUME 9.1 fL (7.4-10.4); PLATELET COUNT 195 K/uL (130-400); WHITE BLOOD COUNT 6.11 K/uL (4.8-10.8)
[2016-10-27 05:51] LABS: PARTIAL THROMBOPLASTIN RATIO 2.5
[2016-10-27] MEDS: ASPIRIN 81 MG ECTAB PO SCH (07:10)
[2016-10-27] MEDS: ROSUVASTATIN CALCIUM 10 MG TAB PO SCH (07:10)
--- NOTE | 2016-10-27 09:28 | Progress Note ---
Medicine Progress Note Date & Time of Visit: Oct 27, 2016 at 09:25. Subjective Patient seen and examined. Denies chest pain or SOB. Objective Last 8 Hrs Date Time Temp Pulse Resp B/P Pulse Ox O2 Delivery O2 Flow Rate FiO2 10/27/16 08:49 93 Room Air 10/27/16 07:33 36.6 58 18 129/67 95 Room Air 10/27/16 04:00 Room Air 10/27/16 03:30 36.4 60 18 121/67 94 Room Air Physical Exam: General-awake; alert; NAD Eyes-EOMI; no scleral icterus Neck-no stridor; trachea midline Lungs-CTA bilaterally; no wheezes/crackles Heart-RRR; no m/r/g Abdomen-soft; NTND; nBS Extremities-no c/c/e; no deformity Neuro-no gross focal deficits Laboratory Results: Last 24 Hours Test 10/26/16 11:02 10/27/16 05:26 Activated Partial Thromboplast Time 65.3 SECONDS 64.9 SECONDS Partial Thromboplastin Ratio 2.5 2.5 White Blood Count 6.11 K/uL Red Blood Count 4.50 M/uL Hemoglobin 13.9 g/dL Hematocrit 38.5 % Mean Corpuscular Volume 85.6 fL Mean Corpuscular Hemoglobin 30.9 pg Mean Corpuscular Hemoglobin Concent 36.1 g/dl RDW Standard Deviation 38.1 fL RDW Coefficient of Variation 12.3 % Platelet Count 195 K/uL Mean Platelet Volume 9.1 fL Assessment & Plan 66 year old male presented from OSH with new onset afib and severe substernal chest pain requiring IV nitro. Patient converted to SR prior to arrival, remains chest pain free. CHEST PAIN, H/O CAD -Has been noncompliant with Aspirin, for at least a year - resumed Aspirin -ACS r/o negative -Echo with no regional wall motion abnormalities -Nitro prn chest pain -Cardiology consulted -Plan for heart catheterization on Friday NEW ONSET ATRIAL FIBRILLATION -Afib with RVR at OSH, and then converted to NSR -No history of Afib previously -[id number] score 3 -Received Lovenox --> changed to heparin drip (hold at midnight for heart catheterization Friday) -Atenolol increased -Cardiology consulted -TSH normal RECENT ACUTE BRONCHITIS -Finished steroids and penicillin at home -Continue albuterol inhaler PRN HTN -Atenolol increased HLD -Continue statin BPH -Has not been taking Flomax for several months CODE STATUS: FULL CODE Consultants: Cardiology Procedures: TTE * Ejection Fraction = 55-60%. * There is mild concentric left ventricular hypertrophy. * Grade I diastolic dysfunction, (abnormal relaxation pattern). * Borderline dilated ascending aorta. * No regional wall motion abnormalities noted. Current Inpatient Medications: Current Inpatient Medications Medications (Trade) Dose Ordered Sig/Robe Route Start Time Stop Time Status Last Admin Dose Admin Acetaminophen (Tylenol Tab) 650 mg Q4H PRN PO 10/24/16 20:00 11/23/16 19:59 Nitroglycerin (Nitrostat Tab) 0.4 mg UD PRN SL 10/24/16 20:00 11/23/16 19:59 Miscellaneous (Iv Fluids Completed) 1 ea PRN PRN N/A 10/24/16 20:30 10/24/17 20:29 Aspirin (Ecotrin Tab) 81 mg DAILY PO 10/25/16 09:00 11/24/16 08:59 10/27/16 07:10 81 MG Acetaminophen/ Hydrocodone Bitart ([place] 10/325 Tab) 1 tab Q4H PRN PO 10/24/16 20:45 11/07/16 20:44 10/26/16 07:18 1 TAB Rosuvastatin Calcium (Crestor Tab) 10 mg DAILY PO 10/25/16 09:00 11/24/16 08:59 10/27/16 07:10 10 MG Atenolol (Tenormin Tab) 50 mg DAILY PO 10/26/16 09:00 11/25/16 08:59 10/27/16 07:10 50 MG Albuterol 2 puffs 2 puffs Q6 PRN INH 10/25/16 16:00 11/24/16 15:59 Heparin Sodium/ Dextrose (Heparin 25,000 Unit/500ml D5W) 500 ml @ 31 mls/hr Q16H8M PRN IV 10/25/16 21:00 11/24/16 20:59 10/26/16 14:50 31 MLS/HR Polyethylene (Miralax Powder Packet) 17 gm DAILY PRN PO 10/26/16 15:30 11/25/16 15:29
--- NOTE | 2016-10-27 11:09 | Cardiology Follow-Up ---
Subjective General Date of Service: Oct 27, 2016. Pt evaluation today including: conversation w/ patient, physical exam, chart review, lab review, review of studies, review of inpatient medication list History of Present Illness The patient is a 66 year old male seen in follow up. Feels well today. No recurrent chest discomfort at rest. No recurrent AF on telemetry. Tolerating diet and medications. Offers no complaints. Allergies Coded Allergies: No Known Allergies (Unverified , 10/24/16) Social History Smoking Status: Never Smoker Hx Alcohol Use - Type And Amou: Yes (OCC BEER ) Hx Substance Use - Type And Am: No Review of Systems Respiratory: No cough, No dyspnea at rest, No dyspnea on exertion, No hemoptysis, No shortness of breath, No sputum, No wheezing Cardiac: No PND, No chest pain, No claudication, No edema, No orthopnea, No palpitations Physical Exam Vital Signs Last Vital Signs Documentation Date Time Temp Pulse Resp B/P Pulse Ox O2 Delivery O2 Flow Rate FiO2 10/27/16 08:49 93 Room Air 10/27/16 07:33 36.6 58 18 129/67 10/24/16 20:44 2.0 Physical Exam Constitutional: General Apperance: well-nourished Level of Distress: NAD Head: normocephalic, atraumatic ENMT: normal ENT inspection Lungs: Auscultation: no rales/crackles, no rhonchi, expiratory wheezing Cardiovascular: Heart Auscultation: RRR, normal S1, normal S2, no murmurs, no rubs, no gallops Peripheral Pulses: Radial Pulse: normal on the left, normal on the right Femoral Pulse: normal on the right Abdomen: Bowel Sounds: normal Inspection & Palpation: soft, non-distended, no tenderness, guarding & rebound Extremities: no cyanosis, no edema, no clubbing, no ulcers Neurologic: Gait & Station: pertinent finding (No focal motor deficit) Cranial Nerves: grossly intact Assessment and Plan Assessment and Plan FINAL IMPRESSION: 1. Paroxysmal atrial fibrillation with rapid ventricular response. - currently sinus rhythm 2. Chronic coronary artery disease, prior LAD RON with exertional class 2-3 angina as well as significant angina reported during recent episode of atrial fibrillation with rapid ventricular response. 3. Obesity. 4. Dyslipidemia - controlled 5. Hypertension - controlled 6. Reactive airways disease. 7. Noncompliance of medications. PLAN AND RECOMMENDATIONS: Continue IV heparin, aspirin, statin, and beta randy. Cardiac catheterization in AM. DOAC vs. coumadin pending result of catheterization. Continue telemetry. NPO except medications after midnight. Laboratory Results Last 24 Hours Test 10/27/16 05:26 White Blood Count 6.11 K/uL Red Blood Count 4.50 M/uL Hemoglobin 13.9 g/dL Hematocrit 38.5 % Mean Corpuscular Volume 85.6 fL Mean Corpuscular Hemoglobin 30.9 pg Mean Corpuscular Hemoglobin Concent 36.1 g/dl RDW Standard Deviation 38.1 fL RDW Coefficient of Variation 12.3 % Platelet Count 195 K/uL Mean Platelet Volume 9.1 fL Activated Partial Thromboplast Time 64.9 SECONDS Partial Thromboplastin Ratio 2.5
[2016-10-28] VITALS (15 sets, daily range): BP systolic 107–133; BP diastolic 65–84; PULSE 55–68; TEMP 36.3–36.9; O2SAT 92–97
[2016-10-28 05:22] LABS: HEMATOCRIT 40.9 % (42-52); MEAN CELL VOLUME 87.2 fL (80-100); MEAN CORPUSCULAR HEMOGLOBIN 31.1 pg (25-34); MEAN CORPUSCULAR HGB CONC 35.7 g/dl (32-36); MEAN PLATELET VOLUME 9.4 fL (7.4-10.4); PLATELET COUNT 221 K/uL (130-400); RED BLOOD COUNT 4.69 M/uL (4.7-6.1); WHITE BLOOD COUNT 6.01 K/uL (4.8-10.8)
[2016-10-28 05:31] LABS: PARTIAL THROMBOPLASTIN RATIO 1.1
[2016-10-28 05:59] LABS: BUN/CREATININE RATIO 13.4 (10-20); CALCIUM 8.8 mg/dl (8.5-10.1); CREATININE 1.1 mg/dl (0.60-1.40); POTASSIUM 3.6 mmol/L (3.5-5.1)
[2016-10-28] MEDS: ASPIRIN 81 MG ECTAB PO SCH (06:56)
[2016-10-28] MEDS: ROSUVASTATIN CALCIUM 10 MG TAB PO SCH (06:56)
[2016-10-28] MEDS ORDERED: NiCARDipine HCL INJ 2.5 MG/ML 10 ML AMP ONE (09:13)
[2016-10-28] MEDS ORDERED: HEPARIN SOD (PORCINE) 1000 UNIT/ML 10 ML VIAL ONE (09:13)
[2016-10-28] MEDS ORDERED: MIDAZOLAM HCL 1 MG/ML 2ML VIAL ONE (09:13)
[2016-10-28] MEDS ORDERED: FENTANYL CITRATE INJ 50 MCG/1 ML 2 ML VIAL ONE (09:13)
[2016-10-28] MEDS ORDERED: NITROGLYCERIN/D5W 100MCG/ML 20ML SYR ONE (09:14)
--- NOTE | 2016-10-28 11:12 | [facility] Post Operative Brief Note ---
Preliminary Procedure Note Procedure Date Oct 28, 2016. AUC Score 8 Post-Procedure Diagnosis Moderate CAD, Normal LV Systolic Function Procedure(s) Performed Coronary Angiography, Left Heart Cath, LV Angiography Credit Analysis Manager Dr. Pj Veras Plate Glass Polisher(s) Kiersten Friedman Estimated Blood Loss <15cc Medication(s) Fentanyl (12.5 mcg IV), Heparin (5000u IV), Nicardipine (250 mcg intraarterial after sheath insertion), Nitroglycerin (200 mcg intraarterial after sheath insertion), Versed (1mg IV), Lidocaine 1% (local infiltration) Preliminary Findings Right dominant coronary anatomy Diffuse coronary atherosclerosis, moderate Left Main mild calcification Patent LAD stent, long with 40-50% instent stenosis LAD Diagonal 50 % mid vessel CX large but nondominant with distal PL branch long 70% at origin RCA Large 30% mid, 50% at margin, 50%origin of PDA Hyperdynamic LV function EF70% Mild aortic root enlargement Recommendations Medical therapy and/or Counseling Specimens None Fluids (cc crystalloids) 100cc NSS Anesthesia Start 1013, Stop 1040 Procedural Complication(s) None Disposition PCU
--- NOTE | 2016-10-28 11:16 | Procedure Note ---
Pre-Mod Sedation Assessment General Date of Moderate Sedation: Oct 28, 2016. Vital Signs: Vital Signs Past 12 Hours Date Time Temp Pulse Resp B/P Pulse Ox O2 Delivery O2 Flow Rate FiO2 10/28/16 10:40 58 18 112/73 95 Room Air 10/28/16 08:49 93 Room Air 10/28/16 07:45 36.3 60 18 110/69 92 Room Air 10/28/16 05:16 36.4 62 18 107/65 96 Room Air 10/28/16 04:00 Room Air 10/27/16 23:51 Room Air Review Airway Class: II Pre-Sedation Airway Assessment Oral Cavity: WNL Able to Visualize Vocal Cords: Yes Short Thick Neck: No Hx of Sleep Apnea: No Smoking Status: Former Smoker Mallampati Classification: Class II ASA Classification: Class II Procedure Planning Contraindications-for Mod Sed: None Yes Notes The planned sedation has been discussed with the patient and consent obtained. I have identified the patient, determined the appropriateness of sedation and have assessed the patient immediately prior to the procedure. All medicine(s) and interventions are by my order.
--- NOTE | 2016-10-28 11:17 | Procedure Note ---
Post-Mod Sedation Assessment General Date of Moderate Sedation Oct 28, 2016. Vital Signs: Vital Signs Past 12 Hours Date Time Temp Pulse Resp B/P Pulse Ox O2 Delivery O2 Flow Rate FiO2 10/28/16 10:40 58 18 112/73 95 Room Air 10/28/16 08:49 93 Room Air 10/28/16 07:45 36.3 60 18 110/69 92 Room Air 10/28/16 05:16 36.4 62 18 107/65 96 Room Air 10/28/16 04:00 Room Air 10/27/16 23:51 Room Air Review - Discharge Criteria Vital Signs Stable: Yes Alert/Oriented/Conversant: Yes Returned to Baseline Mental St: Yes Nausea Absent/Minimal: Yes Pain/Discomfort/Absent/Minimal: Yes Normal/Baseline Respirations: Yes Active Bleeding?: No Pt Received D/C Instructions: N/A Specific Proced. D/C Criteria Distal Pulses Present (Cardiac: Yes Groin site assessed-Card Cath: N/A Voided Prior To Discharge: N/A Discharged Patients Adult Escort/Transportation: Yes
[2016-10-28] MEDS ORDERED: SODIUM CHLORIDE 0.9% 1000ML 1,000 ML IV SCH (11:55)
[2016-10-28] MEDS ORDERED: SODIUM CHLORIDE 0.9% 1000ML 250 ML IV PRN (11:55)
[2016-10-28] MEDS ORDERED: NITROGLYCERIN 0.4 MG SL PER TAB CHARGE SL PRN (12:00)
[2016-10-28] MEDS ORDERED: ACETAMINOPHEN 325 MG TAB PO PRN (12:00)
--- NOTE | 2016-10-28 15:24 | PROGRESS NOTE ---
DATE: 10/28/2016 SUBJECTIVE: The patient seen and examined post-cardiac catheterization. The patient tolerated the procedure well. He subsequently was referred for stress testing. He was asymptomatic on a Raphael protocol for 5 minutes. Has had no further chest pain. He still has a residual cough. Notes no dizziness or lightheadedness. OBJECTIVE: VITAL SIGNS: Heart rate is 68, blood pressure is 132/82. NECK: Thick. There is no distinct jugular venous distention. LUNGS: Notable for predominantly clear lung castellanos. CARDIOVASCULAR: Regular. There is no S3 gallop. ABDOMEN: Soft, nontender. EXTREMITIES: Without cyanosis or clubbing. Right radial puncture site is healed. DATA: Stress echocardiography, patient exercised on a standard Raphael protocol for 5 minutes with very blunted heart rate response achieving a peak heart rate of less than 65% age predicted maximum and was asymptomatic throughout the entire time. The level of exertion far exceeded the usual activities per patient. EKG revealed no ischemic changes nor did echocardiogram in normal resting and stress LV function. IMPRESSION: A 66-year-old male with issues as follows: 1. Acute presentation with worsening dyspnea on exertion at rest, chest pain and pressure in response to upper respiratory infection and severe cough and atrial fibrillation with rapid ventricular response. The patient has spontaneously converted to sinus rhythm. Subsequent diagnostic cardiac catheterizations demonstrated moderate diffuse, but no high-grade obstructive disease other than branch vessels. RECOMMENDATIONS: 1. Treat branch vessel coronary atherosclerosis with medical therapies including aspirin 81 mg per day, high dose statin with Rosuvastatin 10 mg per day. Continue atenolol increased dose of 50 mg per day 2. Paroxysmal atrial fibrillation. The event occurred in the setting of acute respiratory distress, corticosteroids and antibiotic therapies. Would recommend anticoagulation with oral novel anticoagulant until seen back in return. 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 We will allow patient to be discharged today with planned followup in cardiology office in 1-2 week's time.
[2016-10-28] MEDS ORDERED: TNR50 PO (16:05)
[2016-10-28] MEDS ORDERED: ASPEC81 PO (16:05)
[2016-10-28] MEDS ORDERED: RIVA1TAB4 PO (16:05)
--- NOTE | 2016-10-28 16:12 | Discharge Instructions ---
Discharge Instructions Admission Reason for Admission: Atrial Fibrillation, Chest Pain Discharge Discharge Diagnosis / Problem: Coronary artery disease; Paroxysmal Atrial Fibrillation Discharge Goals Goal(s): Improve disease control Activity Recommendations Activity Limitations: resume your previous activity . Instructions / Follow-Up Instructions / Follow-Up Please follow up with Family Medicine Dr. Abdi on October 31 at 9:30am. You will be contacted regarding scheduling a follow up appointment with Cardiology Dr. Moore. Current Hospital Diet Patient's current hospital diet: AHA Diet (Heart Healthy) Discharge Diet Recommended Diet: AHA Diet (Heart Healthy) Pending Studies Studies pending at discharge: no Laboratory Results Lipid Panel Test 10/25/16 05:51 Range/Units Triglycerides Level 304 H 0-150 mg/dl Cholesterol Level 109 0-200 mg/dl HDL Cholesterol 36 mg/dl Cholesterol/HDL Ratio 3.0 LDL Cholesterol, Calculated 12 mg/dl Medical Emergencies . Who to Call and When: Medical Emergencies: If at any time you feel your situation is an emergency, please call 911 immediately. . Non-Emergent Contact Non-Emergency issues call your: Primary Care Provider . . "Provider Documentation" section prepared by Silvia Arguelles. VTE Core Measure Inpt VTE Proph given/why not?: Other Anticoagulation
[2016-10-28] MEDS ORDERED: RIVAROXABAN 20 MG TAB PO SCH (16:45)
--- NOTE | 2016-10-28 18:06 | EXERCISE STRESS ECHO ---
*NOTICE TO RECEIVING REPUBLICAN AGENCY This information is strictly Confidential and protected under [place] law. [place] law prohibits you from making any further disclosure of this information unless further disclosure is expressly permitted by the written consent of the person to whom it pertains or is authorized by law. A general authorization for the release of medical or other information is not sufficient for this purpose. Hospital accepts no responsibility if the information is made available to any other person, INCLUDING THE PATIENT. Interpretation Summary * Name: ALEX GUY Study Date: 10/28/2016 12:58 PM BP: 120/81 mmHg * Patient Location: .2T\S\E215\S\1 HR: 61 * : 1950 (M/d/yyy) Gender: Male Height: 69 in * Age: 66 yrs Ethnicity: CA Weight: 180 lb * Ordering Physician: Pj Veras * Referring Physician: Self, Referred * Performed By: Ronald Garcia RCS * * Reason For Study: CAD * BSA: 2.0 m2 * _ workload achieved. * Suboptimal stress test due to inadequate maximum heart rate. * There is no inducible ischemia noted at peak stress. Procedure Details * ECHOEX, CPT #03240 Left Ventricle * The left ventricle is normal in size. * There is mild concentric left ventricular hypertrophy. * Ejection Fraction = 60-65%. * Resting wall motion: Normal. Stress wall motion: Appropriate increase in Left ventricular systolic function and decrease in cavity size. No stress induced segmental wall motion abnormalities. Stress Parameters * Normal baseline electrocardiogram. * The stress ECG response was normal * The stress portion of this study was personally supervised by the undersigned interpreting physician. * Rest heart rate was '61' BPM. * Rest blood pressure was '120/81' * Maximum heart rate achieved was 95 bpm. * Maximum heart rate was 61 % of maximum age-predicted heart rate. * Maximum blood pressure was '146/74' * Total exercise time was '4:59' * Maximum exercise MET level achieved was '6.9' METS * Maximum treadmill speed was '2.5' miles per hour. * Maximum treadmill elevation was '12'% grade. * Exercise was terminated due to 'FATIGUE' * Normal blood pressure response to exercise.
--- NOTE | 2016-10-28 21:46 | Discharge Summary ---
Discharge Summary Admission Date: Oct 24, 2016 at 20:02 Discharge Date: Oct 28, 2016 Discharge Disposition: Home Principal Diagnosis: CAD Procedures: TTE * Ejection Fraction = 55-60%. * There is mild concentric left ventricular hypertrophy. * Grade I diastolic dysfunction, (abnormal relaxation pattern). * Borderline dilated ascending aorta. * No regional wall motion abnormalities noted. LHC Right dominant coronary anatomy Diffuse coronary atherosclerosis, moderate Left Main mild calcification Patent LAD stent, long with 40-50% instent stenosis LAD Diagonal 50 % mid vessel CX large but nondominant with distal PL branch long 70% at origin RCA Large 30% mid, 50% at margin, 50%origin of PDA Hyperdynamic LV function EF70% Mild aortic root enlargement Stress test * Suboptimal stress test due to inadequate maximum heart rate. * There is no inducible ischemia noted at peak stress. Consultations: Cardiology Medication Reconciliation New Medications: Atenolol (Atenolol) 50 Mg Tab 1 TAB PO DAILY for 30 Days, #30 TABS Rivaroxaban (Xarelto) 20 Mg Tab 20 MG PO DAILY for 30 Days, #30 TAB Aspirin (Aspirin EC Low Dose) 81 Mg Ectab 81 MG PO DAILY for 30 Days, #30 TAB Continued Medications: Albuterol Sulfate (Proair Respiclick) 108 Mcg/Act Aer 2 PUFFS INH Q4H PRN for SOB/Wheezing Hydrocodone/Acetaminophen 10MG/325MG ([place] 10MG/325MG) Tab 1 TAB PO Q4H PRN for Pain, TAB PRN PAIN Ipratropium-Albuterol (Combivent Respimat) 1 Aer Aer 1 PUFFS INH QID, INH Ipratropium-Albuterol (Duoneb) 3 Ml Nebu 1 TREATMENT INH Q4H PRN for SOB/Wheezing, INHA Rosuvastatin Calcium (Crestor) 10 Mg Tab 10 MG PO DAILY Discontinued Medications: Atenolol (Atenolol) 25 Mg Tab 25 MG PO DAILY Admission Information HPI (per Admitting provider): Patient seen and examined. 66 year old male with PMHx of CAD s/p Stent, HLD, HTN , and BPH is seen as a direct admission after transfer from [facility] for chest pain and afib with RVR. Patient reports that earlier today he was driving his car when he had sudden onset of substernal chest pressure that he described as someone stepping on his chest and rated as a 10/10. He states he had numbness/tingling down his right arm at that time. He reports that he had associated SOB and his friend said he appeared very pale. He pulled over to switch to the passenger seat and when he got out of the car he felt very dizzy. He presented to OSH ED and was given SL nitro and the pain resolved. At OSH patient was found to be in Afib with RVR. He received Aspirin, Potassium, Ativan and Nitro IV. He spontaneously converted to sinus rhythm. [facility] does not have a cardiology service and patient was transferred to [facility] for further workup. Patient reports he currently feels back at baseline. He states he has not had chest pain like this in the past. He reports a stent placed in 2008 and that he has not followed up with cardiology since then. He no longer takes aspirin. Patient reports he has been dealing with URI symptoms all winter. He reports cough with occasional sputum production and associated wheezing. He reports he has been on steroids, penicillin which have finished and continues to use nebulizers and inhalers. On arrival patient is resting comfortably, he is in Sinus rhythm. He denies fevers, chills, current chest pain, palpitations, nausea, vomiting, diarrhea, dysuria, calf pain and edema. He denies history of Afib. He is a lifelong nonsmoker. At OSH Elan were negative x 1, K+ was 3.5, repeat lab work, EKG, CXR are pending. He will be observed for further workup and treatment. Physical Exam (per Admitting): General Appearance: + pertinent finding (Very pleasant WD/WN 66 year old male lying in bed in NAD ) Head: normocephalic, atraumatic Eyes: PERRL, EOMI, sclerae normal ENT: hearing grossly normal, pharynx normal Neck: supple, no JVD, trachea midline Respiratory/Chest: no respiratory distress, no accessory muscle use, + pertinent finding (Chest tender to palpation sternal area, trace scattered end expiratory wheezes noted. ) Cardiovascular: regular rate, rhythm, no edema, no gallop, no JVD, no murmur , normal peripheral pulses Abdomen/GI: normal bowel sounds, non tender Back: normal inspection, no muscle spasm Extremities/Musculoskelatal: no calf tenderness, normal capillary refill, no pedal edema Neurologic/Psych: alert, oriented x 3, + pertinent finding (no motor or sensory deficits noted on gross exam ) Skin: normal color, warm/dry, no rash Lymphatic: no adenopathy Hospital Course 66 year old male presented from OSH with new onset Afib and severe substernal chest pain requiring IV nitro. Patient converted to SR prior to arrival, remains chest pain free. Cardiology consulted. ACS r/o negative. TTE did not show any regional wall motion abnormalities. LHC revealed multiple vessel disease and medical management was elected. Stress test after LHC did not show any inducible ischemia, although a suboptimal test. Patient remained in sinus rhythm during hospitalization. Per Cardiology recommendations, patient was started on rivaroxaban until Cardiology follow up. Atenolol dose was increased. Patient deemed stable for discharge with Family Medicine and Cardiology follow up. PE on discharge: General- awake; alert; NAD Eyes- EOMI; no scleral icterus Neck- no stridor; trachea midline Lungs- CTA bilaterally; no wheezes/crackles Heart- RRR; no m/r/g Abdomen- soft; NTND; nBS Back- no gross abnormalities Extremities- no c/c/e; no deformity Neuro- no gross focal deficits Skin- no appreciable rash . Total time spent on discharge = This includes examination of the patient, discharge planning, medication reconciliation, and communication with other providers. Discharge Instructions Discharge Instructions Admission Reason for Admission: Atrial Fibrillation, Chest Pain Discharge Discharge Diagnosis / Problem: Coronary artery disease; Paroxysmal Atrial Fibrillation Discharge Goals Goal(s): Improve disease control Activity Recommendations Activity Limitations: resume your previous activity . Instructions / Follow-Up Instructions / Follow-Up Please follow up with Family Medicine Dr. Abdi on October 31 at 9:30am. You will be contacted regarding scheduling a follow up appointment with Cardiology Dr. Moore. Current Hospital Diet Patient's current hospital diet: AHA Diet (Heart Healthy) Discharge Diet Recommended Diet: AHA Diet (Heart Healthy) Pending Studies Studies pending at discharge: no Laboratory Results Lipid Panel Test 10/25/16 05:51 Range/Units Triglycerides Level 304 H 0-150 mg/dl Cholesterol Level 109 0-200 mg/dl HDL Cholesterol 36 mg/dl Cholesterol/HDL Ratio 3.0 LDL Cholesterol, Calculated 12 mg/dl Medical Emergencies . Who to Call and When: Medical Emergencies: If at any time you feel your situation is an emergency, please call 911 immediately. . Non-Emergent Contact Non-Emergency issues call your: Primary Care Provider . . "Provider Documentation" section prepared by Silvia Arguelles. VTE Core Measure Inpt VTE Proph given/why not?: Other Anticoagulation Additional Copies To Moises Espinoza M.D., Anthony J. M.D.
--- NOTE | 2016-10-29 01:05 | CARDIAC CATH REPORT ---
INDICATIONS: Concern regarding acute coronary syndrome, increasing shortness of breath and chest pain in association with atrial fibrillation with rapid ventricular response. PROCEDURES: Left heart catheterization, coronary and LV angiography. BRIEF CARDIAC HISTORY: The patient is a 66-year-old male with underlying history of ischemic heart disease, having undergone prior stenting of the left anterior descending at [facility] in 2008. He was admitted after failure of outpatient management of upper respiratory infection with cough, chest pain as well as exertional dyspnea and racing heart rate. He was found to be in atrial fibrillation with rapid ventricular response but spontaneously converted during hospitalization. Symptoms were strongly suggestive of exertional angina. Given cardiac history, he was referred for diagnostic cardiac catheterization. ACCESS: Right radial artery. CATHETERS: A 6-[place] long [place] sheath, 5-[place] brachial 3.5, 5-[place] straight pigtail. CONTRAST: Nonionic 126 mL Optiray. IV FLUIDS: The patient received 100 mL normal saline. RADIATION EXPOSURE: 6.1 minutes fluoroscopy, 1409 milligrays, DAP score of 9262. SEDATION: The patient received 1 mg IV Versed and fentanyl 12.5 mcg IV at 10:13 monitored through 10:40. MEDICATIONS: Following intra-arterial sheath insertion, the patient received intra-arterial injection of 250 mcg of nicardipine and 200 mcg of nitroglycerin. After central access gained, 5000 units IV heparin was also administered. COMPLICATIONS: None. RESULTS: CORONARY ANGIOGRAPHY: LEFT MAIN: Left main is relatively short and bifurcated to give rise to left anterior descending and left circumflex. There is mild calcification in the left main but no obstruction. LEFT ANTERIOR DESCENDING: Left anterior descending is type 3 in distribution, gives rise to a modest caliber diagonal at the end of its proximal third and 2 large septal branches in its mid and proximal third. The left anterior descending then courses to terminate beyond the apex. Within the left anterior descending, there is a long area of stenting encompassing a good portion of the proximal third. This stent is patent. There is also a long area of smooth in-stent restenosis of 40% with a 50% taper at the end of the stent. There is an additional 50% narrowing in the midvessel of left anterior descending. The left anterior descending diagonal also has a 50% narrowing in its mid portion of this vessel, looking diffusely diseased. LEFT CIRCUMFLEX: The left circumflex is large but nondominant and gives rise to 2 small marginal branches, a large obtuse marginal and turns along the AV groove to give rise to small first posterolateral and large terminal posterolateral branch. Within the left circumflex, there are diffuse luminal irregularities with a discrete 70% narrowing in the proximal portion of its most distal posterolateral branch. RIGHT CORONARY ARTERY: The right coronary is large and dominant in distribution. It gives rise to a conus branch shortly after its origin, a right ventricular branch in its mid portion, at the AV groove a long posterior descending artery of moderate caliber and along the AV groove a single terminal posterior ventricular branch. Within the right coronary artery, there are diffuse coronary atherosclerotic changes with stenotic narrowings of 40% in its mid vessel, 50% at the acute margin and 50% at the origin of the posterior descending artery. LEFT VENTRICULAR ANGIOGRAPHY: The left ventricle was hyperdynamic, EF greater than 70%. There are no wall motion abnormalities. There is no significant mitral insufficiency. The aortic root was mildly enlarged. HEMODYNAMICS: Initial aortic root pressure following a vasodilator infusion was 74/57 with a mean of 65. LV pressure following coronary angiography was 98/4 with a mean of 7 with an LVEDP of 7. Aortic root pressure following completion of the case was 102/68 with a mean of 83. There was no transaortic valve gradient on pullback. FINAL IMPRESSIONS: 1. Class 3 exertional dyspnea secondary to multiple factorial complaints including upper respiratory infection, atrial fibrillation with rapid ventricular response and underlying moderate diffuse coronary atherosclerosis. 2. Right dominant coronary anatomy. 3. Patent mild area of long stent within the proximal left anterior descending with in-stent narrowing of 40-50%. 4. Diffuse atherosclerotic changes all vasculature with the most significant lesions, 70% narrowing within the proximal portion of the distal circumflex posterolateral branch. 5. Hyperdynamic left ventricular function. RECOMMENDATIONS: The patient will be referred for medical management and stress testing. If ischemia documented or symptoms would occur, would consider referral for coronary intervention of the circumflex branch, though ultimate goal would be ongoing optimal medical therapies.
== END 2016-10-28 17:05 | disposition home or self-care (01) ==
LOC: ENRESERVTM → ENRESERVDT → C.EDA 19:34 → C.2T 20:02
PROVIDERS: ADMIT Hospitalist; ATTEND Internal Medicine
DX: I48.0 Paroxysmal atrial fibrillation (principal); I25.10 Atherosclerotic heart disease of native coronary artery without angina pectoris; N40.0 Benign prostatic hyperplasia without lower urinary tract symptoms; E78.5 Hyperlipidemia, unspecified; J45.909 Unspecified asthma, uncomplicated; J06.9 Acute upper respiratory infection, unspecified; E66.9 Obesity, unspecified; F17.200 Nicotine dependence, unspecified, uncomplicated; I10 Essential (primary) hypertension; Z91.14 Patient's other noncompliance with medication regimen; Z79.82 Long term (current) use of aspirin; Z82.49 Family history of ischemic heart disease and other diseases of the circulatory system; Z82.3 Family history of stroke

== ENCOUNTER 2018-01-25 10:26 | Inpatient (IN) | payer BC, OTHER ==
[~2018-01-25] VITALS: Ht 175.3 cm; Wt 86.9 kg
[~2018-01-25 10:26] MED LIST: ALBU18002 INH; ASPI-320 PO; CRS10 PO; HYDR-4079 PO; IPRA1AER2 INH; IPRASOL4 INH; RIVA1TAB4 PO; TNR50 PO
[2018-01-25] MEDS ORDERED: CLOP1TAB15 PO (10:58)
[2018-01-25] MEDS ORDERED: LISI-729 PO (10:58)
[2018-01-25] MEDS ORDERED: ATEN-173 PO (10:58)
[2018-01-25] MEDS ORDERED: PRLSR20 PO (10:58)
[2018-01-25] MEDS ORDERED: ONDANSETRON INJ 2 MG/ML 2 ML VIAL IV STA (11:06)
[2018-01-25] MEDS ORDERED: SODIUM CHLORIDE 0.9% 1000ML 500 ML IV STA (11:06)
[2018-01-25] MEDS ORDERED: PANTOprazole INJ 80 MG in DEXTROSE 5% 100ML IV ONE (11:15)
[2018-01-25] MEDS ORDERED: PANTOprazole INJ 40 MG in DEXTROSE 5% 100ML IV SCH (11:30)
[2018-01-25 11:42] LABS: BASO % 0.3 %; BASO ABS # 0.02 K/uL (0-0.2); EOS % 2.8 %; EOS ABS # 0.21 K/uL (0-0.5); HEMATOCRIT 37.8 % (42-52); HEMOGLOBIN 12.6 g/dL (14.0-18.0); IG# 0.01 K/uL (0.00-0.02); LYMPH % 13.5 %; LYMPH ABS # 1.02 K/uL (1.2-3.4); MEAN CELL VOLUME 83.1 fL (80-100); MEAN CORPUSCULAR HEMOGLOBIN 27.7 pg (25-34); MEAN CORPUSCULAR HGB CONC 33.3 g/dl (32-36); MEAN PLATELET VOLUME 8.9 fL (7.4-10.4); MONO % 7.4 %; MONO ABS # 0.56 K/uL (0.11-0.59); NEUT % 75.9 %; NEUT ABS # 5.75 K/uL (1.4-6.5); PLATELET COUNT 190 K/uL (130-400); RED CELL DISTRIBUTION WIDTH CV 13.6 % (11.5-14.5); RED CELL DISTRIBUTION WIDTH SD 40.8 fL (36.4-46.3); WHITE BLOOD COUNT 7.57 K/uL (4.8-10.8)
[2018-01-25 11:50] LABS: PTT PATIENT 27.7 SECONDS (21.0-31.0)
[2018-01-25 11:59] LABS: ALBUMIN 3.8 gm/dl (3.4-5.0); ALT/SGPT 18 U/L (12-78); AST/SGOT 13 U/L (15-37); BLOOD UREA NITROGEN 19 mg/dl (7-18); CALCIUM 8.4 mg/dl (8.5-10.1); CARBON DIOXIDE 25 mmol/L (21-32); GLUCOSE 91 mg/dl (70-99); LIPASE 72 U/L (73-393); POTASSIUM 3.7 mmol/L (3.5-5.1); SODIUM 138 mmol/L (136-145)
[2018-01-25 12:02] LABS: ALKALINE PHOSPHATASE 102 U/L (45-117); TOTAL PROTEIN 7.3 gm/dl (6.4-8.2)
--- NOTE | 2018-01-25 12:08 | DIAGNOSTIC IMAGING REPORT ---
SINGLE VIEW CHEST CLINICAL HISTORY: GI bleed. FINDINGS: An AP, portable, upright chest radiograph is compared to study dated 10/24/2016. The examination is degraded by portable technique and apical lordotic positioning. The cardiomediastinal silhouette is unremarkable. There is left basilar atelectasis. The lungs and pleural spaces are clear. No pneumothorax is otherwise seen. The bony thorax is grossly intact. IMPRESSION: No active disease in the chest. Electronically signed by: Garry Shah M.D. 01/25/2018 12:07 PM Dictated Date/Time: 01/25/2018 12:06 PM
[2018-01-25] MEDS ORDERED: ONDANSETRON INJ 2 MG/ML 2 ML VIAL IV PRN (13:15)
[2018-01-25 13:48] VITALS: O2SAT 95; Ht 175.3 cm; Wt 86.9 kg
[2018-01-25] MEDS ORDERED: METO-478 PO (14:03)
[2018-01-25] MEDS ORDERED: LISI-789 PO (14:03)
[2018-01-25] MEDS ORDERED: PANT40TA PO (14:04)
--- NOTE | 2018-01-25 14:08 | History and Physical ---
History & Physical Date & Time of Service: Jan 25, 2018 at 13:43 Chief Complaint: Bleeding Due To Throat Clamps,Vomiting,Dizziness Primary Care Physician: Moises Espinoza M.D. History of Present Illness Source: patient, clinic records This is a 67 year old male with a past medical history of CAD s/p stenting, paroxysmal atrial fibrillation no longer on anticoagulation due to bleed risk, HTN, HLD; recent history of distal esophageal tear s/p clips - presents with an episode of hematemesis. About 5 weeks prior, in [place], patient states he had a chicken bone that caused a tear in his distal esophagus; he became hypotensive and emergent EGD was performed. It took 11 clips to stop the bleeding - was to have a repeat EGD 6 weeks later (first week of January). He states that he drove back from [place] yesterday and he had a hard boiled egg. He had two more hard boiled eggs this morning. He had some vomiting afterwards and had a good amount of blood in it. States that he felt dizzy; similar to his previous bleeding. Denies chest pain/shortness of breath. Denies diarrhea/dark stools. Does not smoke or drink EtOH. Past Medical/Surgical History Medical Problems: (1) Atrial fibrillation (2) BPH (benign prostatic hyperplasia) (3) CAD (coronary artery disease) (4) Chest pain (5) History of left heart catheterization (LHC) (6) HLD (hyperlipidemia) (7) HTN (hypertension) (8) UGIB (upper gastrointestinal bleed) Surgical Problems: (1) H/O shoulder surgery (2) History of cranial surgery (3) History of lumbar fusion (4) S/P surgical manipulation of ankle joint (5) Stented coronary artery Family History FH: heart disease FATHER ( of [place] age 73) MOTHER ( at age 68) Stroke BROTHER, Onset:60 years & older Social History Smoking Status: Never Smoker Marital Status: Housing status: lives with family Occupational Status: employed Allergies Coded Allergies: No Known Allergies (Unverified , 10/24/16) Home Medications Scheduled Aspirin (Aspirin EC Low Dose), 81 MG PO DAILY Atenolol (Tenormin), Unknown Dose PO DAILY Clopidogrel (Plavix), 75 MG PO DAILY Lisinopril (Zestril), Unknown Dose PO DAILY Omeprazole (Prilosec), 20 MG PO DAILY Rosuvastatin Calcium (Crestor), 10 MG PO DAILY Scheduled PRN Albuterol Sulfate (Proair Respiclick), 2 PUFFS INH Q4H PRN for SOB/Wheezing Hydrocodone/Acetaminophen 10MG/325MG ([place] 10MG/325MG), 2 TAB PO TID PRN for Pain Review of Systems Constitutional: No fever, No chills, No sweats, No weight loss, No weakness, No fatigue Respiratory: No cough, No sputum, No wheezing, No shortness of breath, No dyspnea on exertion, No dyspnea at rest, No hemoptysis Cardiovascular: No chest pain, No edema, No palpitations Abdomen: + vomiting, + GI bleeding, No pain, No nausea, No diarrhea, No constipation Genitourinary - Male: No hematuria, No dysuria, No urinary frequency, No urinary urgency Neurologic: + vertigo, No weakness, No balance problems Psychiatric: No depression symptoms, No anxiety, No insomnia Endocrine: No fatigue Hematologic / Lymphatic: + abnormal bleeding/bruising Integumentary: No rash, No itch Allergic / Immunologic: No environmental allergies, No seasonal allergies Physical Exam Vital Signs Date Time Temp Pulse Resp B/P (MAP) Pulse Ox O2 Delivery O2 Flow Rate FiO2 01/25/18 13:38 59 18 129/89 95 Room Air 01/25/18 12:04 52 18 127/78 95 Room Air 01/25/18 11:44 95 Room Air 01/25/18 11:34 49 01/25/18 10:33 36.7 55 20 163/86 97 Room Air General Appearance: WD/WN, no apparent distress Head: normocephalic, atraumatic Eyes: normal inspection ENT: hearing grossly normal Neck: supple Respiratory/Chest: chest non-tender, lungs clear, normal breath sounds, no respiratory distress, no accessory muscle use Cardiovascular: regular rate, rhythm, no edema, no gallop, no JVD, no murmur, normal peripheral pulses Abdomen/GI: normal bowel sounds, non tender, soft, no organomegaly Back: normal inspection, no CVA tenderness, no muscle spasm, normal range of motion Extremities/Musculoskelatal: normal inspection, no calf tenderness, normal capillary refill, no pedal edema, normal range of motion Neurologic/Psych: geophysical observer II-XII nml as tested, no motor/sensory deficits, alert, normal mood/affect, oriented x 3 Skin: normal color, warm/dry, no rash Lymphatic: no adenopathy Diagnostics Laboratory Results Results Past 24 Hours Test 01/25/18 11:22 Range/Units White Blood Count 7.57 4.8-10.8 K/uL Red Blood Count 4.55 4.7-6.1 M/uL Hemoglobin 12.6 14.0-18.0 g/dL Hematocrit 37.8 42-52 % Mean Corpuscular Volume 83.1 80-100 fL Mean Corpuscular Hemoglobin 27.7 25-34 pg Mean Corpuscular Hemoglobin Concent 33.3 32-36 g/dl Platelet Count 190 130-400 K/uL Mean Platelet Volume 8.9 7.4-10.4 fL Neutrophils (%) (Auto) 75.9 % Lymphocytes (%) (Auto) 13.5 % Monocytes (%) (Auto) 7.4 % Eosinophils (%) (Auto) 2.8 % Basophils (%) (Auto) 0.3 % Neutrophils # (Auto) 5.75 1.4-6.5 K/uL Lymphocytes # (Auto) 1.02 1.2-3.4 K/uL Monocytes # (Auto) 0.56 0.11-0.59 K/uL Eosinophils # (Auto) 0.21 0-0.5 K/uL Basophils # (Auto) 0.02 0-0.2 K/uL RDW Standard Deviation 40.8 36.4-46.3 fL RDW Coefficient of Variation 13.6 11.5-14.5 % Immature Granulocyte % (Auto) 0.1 % Immature Granulocyte # (Auto) 0.01 0.00-0.02 K/uL Prothrombin Time 10.5 9.0-12.0 SECONDS Prothromb Time International Ratio 1.0 0.9-1.1 Activated Partial Thromboplast Time 27.7 21.0-31.0 SECONDS Partial Thromboplastin Ratio 1.1 Sodium Level 138 136-145 mmol/L Potassium Level 3.7 3.5-5.1 mmol/L Chloride Level 107 98-107 mmol/L Carbon Dioxide Level 25 21-32 mmol/L Anion Gap 7.0 3-11 mmol/L Blood Urea Nitrogen 19 7-18 mg/dl Creatinine 1.00 0.60-1.40 mg/dl Estimated GFR () 89.9 Estimated GFR (Non- 77.5 BUN/Creatinine Ratio 18.6 10-20 Random Glucose 91 70-99 mg/dl Calcium Level 8.4 8.5-10.1 mg/dl Total Bilirubin 0.5 0.2-1 mg/dl Aspartate Amino Transf (AST/SGOT) 13 15-37 U/L Alanine Aminotransferase (ALT/SGPT) 18 12-78 U/L Alkaline Phosphatase 102 45-117 U/L Total Protein 7.3 6.4-8.2 gm/dl Albumin 3.8 3.4-5.0 gm/dl Globulin 3.5 2.5-4.0 gm/dl Albumin/Globulin Ratio 1.1 0.9-2 Lipase 72 73-393 U/L Diagnostic Radiology SINGLE VIEW CHEST CLINICAL HISTORY: GI bleed. FINDINGS: An AP, portable, upright chest radiograph is compared to study dated 10/24/2016. The examination is degraded by portable technique and apical lordotic positioning. The cardiomediastinal silhouette is unremarkable. There is left basilar atelectasis. The lungs and pleural spaces are clear. No pneumothorax is otherwise seen. The bony thorax is grossly intact. IMPRESSION: No active disease in the chest. EKG Sinus bradycardia Otherwise normal ECG Impression Assessment and Plan This is a 67 year old male with a past medical history of CAD s/p stenting, paroxysmal atrial fibrillation no longer on anticoagulation due to bleed risk, HTN, HLD; recent history of distal esophageal tear s/p clips - presents with an episode of hematemesis. Hematemesis/Upper GI Bleed with Recent Distal Esophageal Tear - distal esophageal tear about 5 weeks prior s/p repair with 11 clips - presents with vomiting/hematemesis - H/H is stable, baseline is close to 13 - will start PPI drip - H/H q6hrs - GI consulted for possible EGD - hold aspirin/Plavix - IV fluids, NPO - no role for transfusion yet; monitor closely in tele CAD s/p stenting - had a stent about 6 months prior - due to GI bleed will hold aspirin + Plavix - holding Toprol due to sinus bradycardia Paroxysmal A. Fib - currently in sinus bradycardia - no longer on Eliquis due to GI bleeding HTN - hold Lisinopril, monitor BP DVT ppx - SCDs FULL CODE Resuscitation Status VTE Prophylaxis Will order VTE Prophylaxis: Yes
[2018-01-25 15:00] VITALS: BP 137/84; PULSE 51; TEMP 36.3; O2SAT 95; O2SAT 97
--- NOTE | 2018-01-25 15:30 | EMERGENCY ROOM VISIT NOTE ---
History Report prepared by Maria Elena: Alli Wei Under the Supervision of: Dr. Garry Sanchez M.D. First contact with patient: 10:56 Chief Complaint: OTHER COMPLAINT Stated Complaint: BLEEDING DUE TO THROAT CLAMPS,VOMITING,DIZZINESS History of Present Illness The patient is a 67 year old male who presents to the Emergency Room with complaints of intermittent blood in his vomit beginning an hour ago. The patient states he developed nausea this morning and then vomited. He reports his vomit had blood in it. The patient notes he tried to eat a sandwich and drink diet coke when he felt ill, but he vomited it back up with blood. He states he had surgery on 11/25/17 in [place] for a Berta Spencer tear in his distal esophagus. The patient reports he developed his tear from eating a boneless pork chop that had a small piece of bone in it. He notes he has a follow-up appointment with Rufus BELLO in about a week. The patient states he is still dizzy. He reports he takes omeprazole for reflux. He notes he is currently on Plavix for a history of two coronary stents. The patient states he does not take Xarelto or Elequis. He denies black stool, bloody stools, abdominal pain, trouble swallowing, chest pain, and shortness of breath. Source of History: patient Onset: an hour ago Quality: other (blood in vomit) Timing: intermittent Modifying Factors (Worsening): eating, drinking Associated Symptoms: + nausea, No chest pain, No SOB, No abdominal pain Note: Associated symptoms: dizziness Denies: black stool, bloody stool, trouble swallowing Review of Systems See HPI for pertinent positives & negatives. A total of 10 systems reviewed and were otherwise negative. Past Medical & Surgical Medical Problems: (1) Atrial fibrillation (2) BPH (benign prostatic hyperplasia) (3) CAD (coronary artery disease) (4) Chest pain (5) History of left heart catheterization (LHC) (6) HLD (hyperlipidemia) (7) HTN (hypertension) (8) UGIB (upper gastrointestinal bleed) Surgical Problems: (1) H/O shoulder surgery (2) History of cranial surgery (3) History of lumbar fusion (4) S/P surgical manipulation of ankle joint (5) Stented coronary artery Family History FH: heart disease FATHER ( of [place] age 73) MOTHER ( at age 68) Stroke BROTHER, Onset:60 years & older Social History Smoking Status: Never Smoker Marital Status: Occupation Status: employed Current/Historical Medications Scheduled Aspirin (Aspirin EC Low Dose), 81 MG PO DAILY Clopidogrel (Plavix), 75 MG PO DAILY Lisinopril (Zestril), 2.5 MG PO DAILY Metoprolol Succinate (Toprol Xl), 25 MG PO DAILY Pantoprazole (Protonix), 40 MG PO DAILY Rosuvastatin Calcium (Crestor), 10 MG PO DAILY Scheduled PRN Albuterol Sulfate (Proair Respiclick), 2 PUFFS INH Q4H PRN for SOB/Wheezing Hydrocodone/Acetaminophen 10MG/325MG ([place] 10MG/325MG), 2 TAB PO TID PRN for Pain Allergies Coded Allergies: No Known Allergies (Unverified , 10/24/16) Physical Exam Vital Signs Date Time Temp Pulse Resp B/P (MAP) Pulse Ox O2 Delivery O2 Flow Rate FiO2 01/25/18 12:04 52 18 127/78 95 Room Air 01/25/18 11:44 95 Room Air 01/25/18 11:34 49 01/25/18 10:33 36.7 55 20 163/86 97 Room Air Physical Exam GENERAL: Patient is in no acute distress. HEENT: No acute trauma, normocephalic atraumatic, mucous membranes moist, no nasal congestion, no scleral icterus. NECK: No stridor, no adenopathy, no meningismus, trachea is midline. LUNGS: Clear to auscultation bilaterally, no wheeze, no rhonchi, breath sounds equal. HEART: Without murmurs gallops or rubs, regular rate and rhythm. ABDOMEN: Soft, nontender, bowel sounds positive, no hernias, no peritonitis. RECTAL: Brown stool. Heme negative. EXTREMITIES: No cyanosis or edema, full range of motion of all the joints without pain or difficulty, no signs for acute trauma. NEUROLOGIC: Oriented x 3, no acute motor or sensory deficits, no focal weakness. SKIN: No rash, no jaundice, no diaphoresis. Medical Decision & Procedures ER Provider Diagnostic Interpretation: X-ray results as stated below per interpretation by me and the radiologist: SINGLE VIEW CHEST CLINICAL HISTORY: GI bleed. FINDINGS: An AP, portable, upright chest radiograph is compared to study dated 10/24/2016. The examination is degraded by portable technique and apical lordotic positioning. The cardiomediastinal silhouette is unremarkable. There is left basilar atelectasis. The lungs and pleural spaces are clear. No pneumothorax is otherwise seen. The bony thorax is grossly intact. IMPRESSION: No active disease in the chest. Electronically signed by: Garry Shah M.D. 01/25/2018 12:07 PM Dictated Date/Time: 01/25/2018 12:06 PM Laboratory Results 01/25/18 11:22 Red Blood Count 4.55, Mean Corpuscular Volume 83.1, Mean Corpuscular Hemoglobin 27.7, Mean Corpuscular Hemoglobin Concent 33.3, Mean Platelet Volume 8.9, Neutrophils (%) (Auto) 75.9, Lymphocytes (%) (Auto) 13.5, Monocytes (%) (Auto) 7.4, Eosinophils (%) (Auto) 2.8, Basophils (%) (Auto) 0.3, Neutrophils # (Auto) 5.75, Lymphocytes # (Auto) 1.02, Monocytes # (Auto) 0.56, Eosinophils # (Auto) 0.21, Basophils # (Auto) 0.02 01/25/18 11:22 Test 01/25/18 11:22 White Blood Count 7.57 K/uL (4.8-10.8) Red Blood Count 4.55 M/uL (4.7-6.1) Hemoglobin 12.6 g/dL (14.0-18.0) Hematocrit 37.8 % (42-52) Mean Corpuscular Volume 83.1 fL (80-100) Mean Corpuscular Hemoglobin 27.7 pg (25-34) Mean Corpuscular Hemoglobin Concent 33.3 g/dl (32-36) Platelet Count 190 K/uL (130-400) Mean Platelet Volume 8.9 fL (7.4-10.4) Neutrophils (%) (Auto) 75.9 % Lymphocytes (%) (Auto) 13.5 % Monocytes (%) (Auto) 7.4 % Eosinophils (%) (Auto) 2.8 % Basophils (%) (Auto) 0.3 % Neutrophils # (Auto) 5.75 K/uL (1.4-6.5) Lymphocytes # (Auto) 1.02 K/uL (1.2-3.4) Monocytes # (Auto) 0.56 K/uL (0.11-0.59) Eosinophils # (Auto) 0.21 K/uL (0-0.5) Basophils # (Auto) 0.02 K/uL (0-0.2) RDW Standard Deviation 40.8 fL (36.4-46.3) RDW Coefficient of Variation 13.6 % (11.5-14.5) Immature Granulocyte % (Auto) 0.1 % Immature Granulocyte # (Auto) 0.01 K/uL (0.00-0.02) Prothrombin Time 10.5 SECONDS (9.0-12.0) Prothromb Time International Ratio 1.0 (0.9-1.1) Activated Partial Thromboplast Time 27.7 SECONDS (21.0-31.0) Partial Thromboplastin Ratio 1.1 Anion Gap 7.0 mmol/L (3-11) Estimated GFR () 89.9 Estimated GFR (Non- 77.5 BUN/Creatinine Ratio 18.6 (10-20) Calcium Level 8.4 mg/dl (8.5-10.1) Total Bilirubin 0.5 mg/dl (0.2-1) Aspartate Amino Transf (AST/SGOT) 13 U/L (15-37) Alanine Aminotransferase (ALT/SGPT) 18 U/L (12-78) Alkaline Phosphatase 102 U/L (45-117) Total Protein 7.3 gm/dl (6.4-8.2) Albumin 3.8 gm/dl (3.4-5.0) Globulin 3.5 gm/dl (2.5-4.0) Albumin/Globulin Ratio 1.1 (0.9-2) Lipase 72 U/L (73-393) Laboratory results reviewed by me. Medications Administered Medications (Trade) Dose Ordered Sig/Robe Route Start Time Stop Time Status Last Admin Dose Admin Sodium Chloride 500 ml @ 999 mls/hr Q31M STAT IV 01/25/18 11:06 01/25/18 11:36 DC 01/25/18 11:06 999 MLS/HR Ondansetron HCl (Zofran Inj) 4 mg NOW STAT IV 01/25/18 11:06 01/25/18 11:11 DC 01/25/18 11:06 4 MG Pantoprazole Sodium (Protonix IV Bolus/Drip) 1 ea NOW STAT IV 01/25/18 11:06 01/25/18 11:11 DC 01/25/18 11:06 1 EA Pantoprazole Sodium 80 mg/ Dextrose 120 ml @ 480 mls/hr ONE ONCE IV 01/25/18 11:15 01/25/18 11:29 DC 01/25/18 11:55 480 MLS/HR Pantoprazole Sodium 40 mg/ Dextrose 100 ml @ 20 mls/hr Q5H IV 01/25/18 11:30 01/25/18 16:29 DC 01/25/18 12:10 20 MLS/HR ECG Per My Interpretation Indication: vomiting Rate (beats per minute): 47 Rhythm: sinus bradycardia Findings: no ectopy, other (No ST elevation. No PVCs.) ED Course 1057: The patient was evaluated in room B09. A complete history and physical exam was performed. 1106: Ordered Pantoprazole Sodium 1 ea IV, Ondansetron HCl 4mg IV, Sodium Chloride 500 ml @ 999 mls/hr IV 1111: I discussed the patient's case with Dr. Madera, GI. He would like the patient admitted to the hospital overnight. He will scope the patient in the morning. He would not recommend an emergency scope. 1115: Ordered Pantoprazole Sodium 80mg/Dextrose 120 ml @ 480 mls/hr IV 1130: Ordered Pantoprazole Sodium 40mg/Dextrose 100 ml @ 20 mls/hr IV 1205: Upon reexamination the patient is resting. I discussed results and treatment plan with the patient. He verbalizes agreement and understanding. The patient will be evaluated for further management. 1230: I discussed the patient's case with Dr. Peterson, [facility] Hospitalist. The patient will be evaluated for further management and care. Medical Decision The patient is a 67 year old male who presents to the ED with complaints of blood in his vomit. Differential diagnoses considered include esophageal or gastric bleeding, Berta Spencer tear, anemia, electrolyte imbalance, dehydration , coagulopathy, esophageal rupture. There is no leukocytosis. The patient is slightly anemic with a hemoglobin of around 12. No significant electrolyte abnormality, kidney failure or hepatitis. There is no coagulopathy. No pancreatitis. EKG shows a sinus bradycardia, no ischemia, no dysrhythmia. Chest film does not show mediastinal widening, pneumonia or pneumothorax. The patient received IV saline, IV Zofran and IV Protonix. He was placed on a Protonix drip. The patient presents with hematemesis. He has a history of a distal esophageal tear that was clipped back in October. He was doing well up until today when he again had hematemesis. The patient requires a hospital stay, I did speak with GI. I spoke with case management. The on-call hospitalist was consulted. Medication Reconcilliation Current Medication List: was personally reviewed by me Blood Pressure Screening Patient's blood pressure: Normal blood pressure Blood pressure disposition: Did not require urgent referral Consults Time Called: 1106 Consulting Physician: ACE Morris Returned Call: 1111 I discussed the patient's case with ACE Morris. He would like the patient admitted to the hospital overnight. He will scope the patient in the morning. He would not recommend an emergency scope. Additional Consults: Time Called: 1201 Consulted Physician: [facility] Returned Call: 1230 Additional Comments: I discussed the patient's case with Rufus Galvez. The patient will be evaluated for further management and care. Impression Primary Impression: Hematemesis Additional Impression: Anemia Scribe Attestation The scribe's documentation has been prepared under my direction and personally reviewed by me in its entirety. I confirm that the note above accurately reflects all work, treatment, procedures, and medical decision making performed by me. Departure Information Dispostion Being Evaluated By Hospitalist Referrals Moises Espinoza M.D. (PCP) Patient Instructions My [facility] Problem Qualifiers
[2018-01-25 16:05] LABS: HEMATOCRIT 36.6 % (42-52); HEMOGLOBIN 12.3 g/dL (14.0-18.0)
[2018-01-25] MEDS: SODIUM CHLORIDE 0.9% 1000ML 1,000 ML IV SCH (16:13)
[2018-01-25] MEDS: PANTOprazole INJ 40 MG in DEXTROSE 5% 100ML IV SCH ×2 (17:02→21:38)
[2018-01-25 19:27] VITALS: BP 127/73; PULSE 57; TEMP 36.7; O2SAT 95
[2018-01-25 20:37] LABS: HEMATOCRIT 34.3 % (42-52); HEMOGLOBIN 11.5 g/dL (14.0-18.0)
--- NOTE | 2018-01-25 22:40 | Medical Consult ---
Consultation Note Date of Service Jan 25, 2018. Consultation Note Reason for consult: hematemesis History of Present Illness Source: patient, clinic records 67 yo M with PMH CAD on ASA/Plavix admit with complaint of single episode of forceful vomiting with small to mod volume hematemesis earlier today after drinking soda. Denies accompanying abd pain, food impaction, recent dark stool. He denies reflux symptoms. On admit, he was normotensive with normal hgb and BUN of 19. Past Medical/Surgical History Medical Problems: (1) Atrial fibrillation (2) BPH (benign prostatic hyperplasia) (3) CAD (coronary artery disease) (4) Chest pain (5) History of left heart catheterization (LHC) (6) HLD (hyperlipidemia) (7) HTN (hypertension) (8) UGIB (upper gastrointestinal bleed) Surgical Problems: (1) H/O shoulder surgery (2) History of cranial surgery (3) History of lumbar fusion (4) S/P surgical manipulation of ankle joint (5) Stented coronary artery Family History FH: heart disease FATHER ( of [place] age 73) MOTHER ( at age 68) Stroke BROTHER, Onset:60 years & older Social History Smoking Status: Never Smoker Marital Status: Housing status: lives with family Occupational Status: employed Allergies Coded Allergies: No Known Allergies (Unverified , 10/24/16) Home Medications Scheduled Aspirin (Aspirin EC Low Dose), 81 MG PO DAILY Atenolol (Tenormin), Unknown Dose PO DAILY Clopidogrel (Plavix), 75 MG PO DAILY Lisinopril (Zestril), Unknown Dose PO DAILY Omeprazole (Prilosec), 20 MG PO DAILY Rosuvastatin Calcium (Crestor), 10 MG PO DAILY Scheduled PRN Albuterol Sulfate (Proair Respiclick), 2 PUFFS INH Q4H PRN for SOB/Wheezing Hydrocodone/Acetaminophen 10MG/325MG ([place] 10MG/325MG), 2 TAB PO TID PRN for Pain Physical Exam H&P v2 Physical Exam Vital Signs Date Time Temp Pulse Resp B/P (MAP) Pulse Ox O2 Delivery O2 Flow Rate FiO2 01/25/18 20:00 Room Air 01/25/18 19:27 36.7 57 20 127/73 (91) 95 Room Air 01/25/18 15:00 95 Room Air 01/25/18 15:00 36.3 51 18 137/84 (101) 97 Room Air 01/25/18 15:00 95 Room Air 01/25/18 13:48 95 Room Air 01/25/18 13:38 59 18 129/89 95 Room Air 01/25/18 12:04 52 18 127/78 95 Room Air 01/25/18 11:44 95 Room Air 01/25/18 11:34 49 01/25/18 10:33 36.7 55 20 163/86 97 Room Air General Appearance: WD/WN, no apparent distress HEENT: no thrush, LAD; mmm and pink; no crepitus CV: RRR Resp: CTA. He does not have pain with deep inspiration or dyr swallow Abd: soft NT Extrem: no edema Diagnostics Laboratory Results Results Past 24 Hours Test 01/25/18 11:22 Range/Units White Blood Count 7.57 4.8-10.8 K/uL Red Blood Count 4.55 4.7-6.1 M/uL Hemoglobin 12.6 14.0-18.0 g/dL Hematocrit 37.8 42-52 % Mean Corpuscular Volume 83.1 80-100 fL Mean Corpuscular Hemoglobin 27.7 25-34 pg Mean Corpuscular Hemoglobin Concent 33.3 32-36 g/dl Platelet Count 190 130-400 K/uL Mean Platelet Volume 8.9 7.4-10.4 fL Neutrophils (%) (Auto) 75.9 % Lymphocytes (%) (Auto) 13.5 % Monocytes (%) (Auto) 7.4 % Eosinophils (%) (Auto) 2.8 % Basophils (%) (Auto) 0.3 % Neutrophils # (Auto) 5.75 1.4-6.5 K/uL Lymphocytes # (Auto) 1.02 1.2-3.4 K/uL Monocytes # (Auto) 0.56 0.11-0.59 K/uL Eosinophils # (Auto) 0.21 0-0.5 K/uL Basophils # (Auto) 0.02 0-0.2 K/uL RDW Standard Deviation 40.8 36.4-46.3 fL RDW Coefficient of Variation 13.6 11.5-14.5 % Immature Granulocyte % (Auto) 0.1 % Immature Granulocyte # (Auto) 0.01 0.00-0.02 K/uL Prothrombin Time 10.5 9.0-12.0 SECONDS Prothromb Time International Ratio 1.0 0.9-1.1 Activated Partial Thromboplast Time 27.7 21.0-31.0 SECONDS Partial Thromboplastin Ratio 1.1 Sodium Level 138 136-145 mmol/L Potassium Level 3.7 3.5-5.1 mmol/L Chloride Level 107 98-107 mmol/L Carbon Dioxide Level 25 21-32 mmol/L Anion Gap 7.0 3-11 mmol/L Blood Urea Nitrogen 19 7-18 mg/dl Creatinine 1.00 0.60-1.40 mg/dl Estimated GFR () 89.9 Estimated GFR (Non- 77.5 BUN/Creatinine Ratio 18.6 10-20 Random Glucose 91 70-99 mg/dl Calcium Level 8.4 8.5-10.1 mg/dl Total Bilirubin 0.5 0.2-1 mg/dl Aspartate Amino Transf (AST/SGOT) 13 15-37 U/L Alanine Aminotransferase (ALT/SGPT) 18 12-78 U/L Alkaline Phosphatase 102 45-117 U/L Total Protein 7.3 6.4-8.2 gm/dl Albumin 3.8 3.4-5.0 gm/dl Globulin 3.5 2.5-4.0 gm/dl Albumin/Globulin Ratio 1.1 0.9-2 Lipase 72 73-393 U/L Diagnostic Radiology SINGLE VIEW CHEST CLINICAL HISTORY: GI bleed. FINDINGS: An AP, portable, upright chest radiograph is compared to study dated 10/24/2016. The examination is degraded by portable technique and apical lordotic positioning. The cardiomediastinal silhouette is unremarkable. There is left basilar atelectasis. The lungs and pleural spaces are clear. No pneumothorax is otherwise seen. The bony thorax is grossly intact. IMPRESSION: No active disease in the chest. EKG Sinus bradycardia Otherwise normal ECG Impression H&P v2 Impression Recent hosp for MWT now with hematemesis - His history suggests recurrent tear, although it is not clear what precipitated this or why he may have recurrent MWT -- Possible EoE? - Resume ASA due to recent stent; hold Plavix. IV PPI gtt. Clears. Serial hgb , xfuse for Hgb < 7. EGD in am.
[2018-01-25] MEDS ORDERED: PNEUMOCOCCAL POLYSACCHARIDES 25 MCG/0.5 ML VIAL/SYR IM. ONE (22:45)
[2018-01-25] MEDS ORDERED: PNEUMOCOCCAL ADMINISTRATION CHARGE ONE (22:45)
[2018-01-25 23:08] VITALS: BP 127/73; PULSE 65; TEMP 36.7; O2SAT 94
[2018-01-26] MEDS: PANTOprazole INJ 40 MG in DEXTROSE 5% 100ML IV SCH ×3 (02:37→14:12)
[2018-01-26] MEDS: SODIUM CHLORIDE 0.9% 1000ML 1,000 ML IV SCH (03:43)
[2018-01-26 04:58] VITALS: BP 133/72; PULSE 63; TEMP 36.7; O2SAT 93
[2018-01-26 07:10] VITALS: BP 127/77; PULSE 58; TEMP 36.7; O2SAT 96
[2018-01-26 08:48] LABS: HEMATOCRIT 36.2 % (42-52); HEMOGLOBIN 12.4 g/dL (14.0-18.0); MEAN CELL VOLUME 82.3 fL (80-100); MEAN CORPUSCULAR HEMOGLOBIN 28.2 pg (25-34); MEAN CORPUSCULAR HGB CONC 34.3 g/dl (32-36); MEAN PLATELET VOLUME 8.9 fL (7.4-10.4); PLATELET COUNT 192 K/uL (130-400); RED CELL DISTRIBUTION WIDTH CV 13.5 % (11.5-14.5); RED CELL DISTRIBUTION WIDTH SD 40.5 fL (36.4-46.3); WHITE BLOOD COUNT 6.33 K/uL (4.8-10.8)
[2018-01-26 08:52] LABS: HEMATOCRIT 36.2 % (42-52); HEMOGLOBIN 12.4 g/dL (14.0-18.0)
[2018-01-26] MEDS ORDERED: ASPIRIN 81 MG ECTAB PO SCH (09:00)
[2018-01-26 09:18] LABS: CALCIUM 8.4 mg/dl (8.5-10.1); POTASSIUM 3.8 mmol/L (3.5-5.1)
--- NOTE | 2018-01-26 11:26 | Endo History and Physical ---
History & Physical Date of Service: Jan 26, 2018. Chief Complaint: Hematemesis Referring Physician: History of Present Illness Patient presented yesterday with hematemesis arrange upper endoscopy today with my partner . He notes having a similar presentation about 8 weeks ago for which she had an upper endoscopy performed at an outside hospital. This was notable for placement of hemostatic clips. Past Surgical History Hx Cardiac Surgery: Yes (STENTS ) Hx Abdominal Surgery: No Hx Post-Op Nausea and Vomiting: No Hx Cancer Surgery: No Hx Thoracic Surgery: Yes (BACK SURGERY ) Hx Orthopedic: Yes (RIGHT SHOULDER, HAND, ANKLE ) Hx Urinary Tract Surgery: No Social History Smoking Status: Never Smoker Hx Substance Use: No Hx Alcohol Use: Yes (beer occasionally 1 to 2 times a week) Allergies Coded Allergies: No Known Allergies (Unverified , 10/24/16) Current Medications Reported Home Medications Medications Dose Route/Sig Max Daily Dose Days Date Category Protonix (Pantoprazole Sodium) 40 Mg Tab 40 Mg PO DAILY 01/25/18 Reported Toprol Xl (Metoprolol Succinate) 25 Mg Tab 25 Mg PO DAILY 01/25/18 Reported Zestril (Lisinopril) 2.5 Mg Tab 2.5 Mg PO DAILY 30 01/25/18 Reported Plavix (Clopidogrel Bisulfate) 75 Mg Tab 75 Mg PO DAILY 01/25/18 Reported Aspirin EC Low Dose (Aspirin) 81 Mg Ectab 81 Mg PO DAILY 30 10/28/16 Rx Proair Respiclick (Albuterol Sulfate) 108 Mcg/Act Aer 2 Puffs INH Q4H PRN 10/24/16 Reported Jackson 10MG/325MG (Acetaminophen/Hydrocodone Bitart) Tab 2 Tab PO TID PRN 10/24/16 Reported Crestor (Rosuvastatin Calcium) 10 Mg Tab 10 Mg PO DAILY 10/24/16 Reported Vital Signs Weight (Kilograms): 86.900 Height (Feet): 5 Height (Inches): 9.00 Date Time Temp Pulse Resp B/P (MAP) Pulse Ox O2 Delivery O2 Flow Rate FiO2 01/26/18 11:05 36.8 57 20 137/78 (97) 96 Room Air 01/26/18 08:00 Room Air 01/26/18 07:10 36.7 58 16 127/77 (94) 96 01/26/18 04:58 36.7 63 18 133/72 (92) 93 Room Air 01/26/18 04:00 Room Air 01/26/18 00:00 Room Air 01/25/18 23:08 36.7 65 18 127/73 (91) 94 Room Air 01/25/18 20:00 Room Air 01/25/18 19:27 36.7 57 20 127/73 (91) 95 Room Air 01/25/18 15:00 95 Room Air 01/25/18 15:00 36.3 51 18 137/84 (101) 97 Room Air 01/25/18 15:00 95 Room Air 01/25/18 13:48 95 Room Air 01/25/18 13:38 59 18 129/89 95 Room Air 01/25/18 12:04 52 18 127/78 95 Room Air 01/25/18 11:44 95 Room Air 01/25/18 11:34 49 Physical Exam General Appearance: no apparent distress Respiratory/Chest: Auscultation: breath sounds normal Cardiovascular: Heart Auscultation: RRR Abdomen: Inspection & Palpation: soft Assessment and Plan Upper endoscopy for evaluation of hematemesis. We have discussed the risks to include bleeding, infection, perforation, pain and aspiration.
[2018-01-26] MEDS ORDERED: LIDOCAINE HCL 2% 2 ML VIAL (20MG/ML) ONE (11:52)
[2018-01-26] MEDS ORDERED: PROPOFOL IV EMULSION 10 MG/ML 20 ML VIAL ONE (11:52)
--- NOTE | 2018-01-26 11:53 | GI REPORT ---
Patient Name: Giorgio Vitale Procedure Date: 01/26/2018 11:32 AM Date of : 1950 Admit Type: Inpatient Age: 67 Gender: Male Attending MD: Aaron Perez DO Procedure: Upper GI endoscopy Providers: Aaron Perez DO Referring MD: Halie Peterson Md, [facility] Indications: Dysphagia, Coffee-ground emesis Medicines: Monitored Anesthesia Care Complications: No immediate complications. Estimated blood loss: Minimal. Estimated Blood Loss: Estimated blood loss was minimal. Procedure: Pre-Anesthesia Assessment: - Prior to the procedure, a History and Physical was performed, and patient medications, allergies and sensitivities were reviewed. The patient's tolerance of previous anesthesia was reviewed. - The risks and benefits of the procedure and the sedation options and risks were discussed with the patient. All questions were answered and informed consent was obtained. - Patient identification and proposed procedure were verified prior to the procedure by the physician, the nurse and the aerophysics engineer. The procedure was verified in the procedure room. - Airway Examination: normal oropharyngeal airway and neck mobility. - ASA Grade Assessment: III - A patient with severe systemic disease. - After reviewing the risks and benefits, the patient was deemed in satisfactory condition to undergo the procedure. - The anesthesia plan was to use monitored anesthesia care (MAC). - Immediately prior to administration of medications, the patient was re-assessed for adequacy to receive sedatives. - The heart rate, respiratory rate, oxygen saturations, blood pressure, adequacy of pulmonary ventilation, and response to care were monitored throughout the procedure. - The physical status of the patient was re-assessed after the procedure. After obtaining informed consent, the endoscope was passed under direct vision. Throughout the procedure, the patient's blood pressure, pulse, and oxygen saturations were monitored continuously. The Scope was introduced through the mouth, and advanced to the third part of duodenum. The upper GI endoscopy was accomplished without difficulty. The patient tolerated the procedure well. Findings: An endoclip was found in the middle third of the esophagus. One benign-appearing, intrinsic stenosis was found 33 cm from the incisors. This stenosis was moderately severe and measured 1 cm (in length). The stenosis was traversed. A guidewire was placed and the scope was withdrawn. Dilation was performed with a Savary dilator with no resistance at 45 Fr and mild resistance at 48 Fr. The endoscope was then reinserted to evaluate the success of the procedure. A superficial rent was noted at the stricture (persistent oozing noted). Estimated blood loss was minimal. Estimated blood loss was minimal. To prevent bleeding post-maneuver, one hemostatic clip was successfully placed (MR conditional). There was no bleeding at the end of the procedure. Estimated blood loss was minimal. A medium-sized hiatal hernia was found. The proximal extent of the gastric folds (end of tubular esophagus) was 38 cm from the incisors. The hiatal narrowing was 42 cm from the incisors. The Z-line was 33 cm from the incisors. The entire examined stomach was normal. The examined duodenum was normal. Impression: - An endoclip was found in the esophagus. - Benign-appearing esophageal stenosis. Dilated to 48 fr today. Clip (MR conditional) was placed to control bleeding from a superficial rent. - Medium-sized hiatal hernia. - Normal stomach. - Normal examined duodenum. - No specimens collected. Recommendation: - Return patient to [facility] for [facility] care. - Mechanical soft diet. - Use Protonix (pantoprazole) 40 mg PO daily. - Repeat upper endoscopy in 1 month for retreatment. Aaron Perez D.O. Aaron Perez, 01/26/2018 11:53:27 AM This report has been signed electronically. Note Initiated On: 01/26/2018 11:32 AM Number of Addenda: 0 I attest to the content of the Intraoperative Record and orders documented therein, exceptions below {[id number]}
--- NOTE | 2018-01-26 12:26 | Anesthesiology Progress Note ---
Anesthesia Post Op Note Date & Time Jan 26, 2018 at 12:26 Vital Signs Pain Intensity: 0.0 Vital Signs Past 12 Hours Date Time Temp Pulse Resp B/P (MAP) Pulse Ox O2 Delivery O2 Flow Rate FiO2 01/26/18 12:19 70 18 136/83 (100) 94 Room Air 01/26/18 12:04 93 16 138/83 (101) 96 Room Air 01/26/18 11:49 70 18 126/80 (95) 94 Room Air 01/26/18 11:05 36.8 57 20 137/78 (97) 96 Room Air 01/26/18 08:00 Room Air 01/26/18 07:10 36.7 58 16 127/77 (94) 96 01/26/18 04:58 36.7 63 18 133/72 (92) 93 Room Air 01/26/18 04:00 Room Air Notes Mental Status: alert / awake / arousable, participated in evaluation Pt Amnestic to Procedure: Yes Nausea / Vomiting: adequately controlled Pain: adequately controlled Airway Patency, RR, SpO2: stable & adequate BP & HR: stable & adequate Hydration State: stable & adequate Anesthetic Complications: no major complications apparent
[2018-01-26 12:35] VITALS: BP 132/73; PULSE 54; TEMP 36.9; O2SAT 96
[2018-01-26 14:10] LABS: HEMATOCRIT 35.1 % (42-52); HEMOGLOBIN 11.8 g/dL (14.0-18.0)
--- NOTE | 2018-01-26 15:11 | Progress Note ---
Subjective Date of Service: Jan 26, 2018. Subjective Pt evaluation today including: conversation w/ patient, physical exam, lab review, review of studies, review of inpatient medication list Saw/examined the patient in room 276 He's doing well; had an EGD; esophageal stenosis and dilatation performed No active bleeding Feeling well, tolerating diet at this time, eager to go home Problem List Medical Problems: (1) Anemia Status: Acute (2) Hematemesis Status: Acute Review of Systems Constitutional: No fever, No chills Respiratory: No shortness of breath Cardiac: No chest pain Abdomen: No pain, No nausea, No vomiting, No diarrhea Medications Current Inpatient Medications Medications (Trade) Dose Ordered Sig/Robe Route Start Time Stop Time Status Last Admin Dose Admin Ondansetron HCl (Zofran Inj) 4 mg Q6H PRN IV 01/25/18 13:15 02/24/18 13:14 Aspirin (Ecotrin Tab) 81 mg QAM PO 01/26/18 09:00 02/25/18 08:59 Rosuvastatin Calcium (Crestor Tab) 10 mg DAILY PO 01/27/18 09:00 02/26/18 08:59 Lisinopril (Zestril Tab) 2.5 mg DAILY PO 01/27/18 09:00 02/26/18 08:59 UNV Metoprolol Succinate (Toprol Xl Tab) 25 mg DAILY PO 01/27/18 09:00 02/26/18 08:59 UNV Pantoprazole Sodium (Protonix Tab) 40 mg DAILY PO 01/27/18 09:00 02/26/18 08:59 UNV Non-Formulary Medication (Albuterol Sulfate (Proair Respiclick)) 2 puffs Q4H PRN INH 01/26/18 15:15 02/25/18 15:14 UNV Objective Vital Signs Date Time Temp Pulse Resp B/P (MAP) Pulse Ox O2 Delivery O2 Flow Rate FiO2 01/26/18 12:35 36.9 54 16 132/73 (92) 96 01/26/18 12:30 Room Air 01/26/18 12:19 70 18 136/83 (100) 94 Room Air 01/26/18 12:04 93 16 138/83 (101) 96 Room Air 01/26/18 11:49 70 18 126/80 (95) 94 Room Air 01/26/18 11:05 36.8 57 20 137/78 (97) 96 Room Air 01/26/18 08:00 Room Air 01/26/18 07:10 36.7 58 16 127/77 (94) 96 01/26/18 04:58 36.7 63 18 133/72 (92) 93 Room Air 01/26/18 04:00 Room Air 01/26/18 00:00 Room Air 01/25/18 23:08 36.7 65 18 127/73 (91) 94 Room Air 01/25/18 20:00 Room Air 01/25/18 19:27 36.7 57 20 127/73 (91) 95 Room Air 01/25/18 15:00 95 Room Air 01/25/18 15:00 36.3 51 18 137/84 (101) 97 Room Air 01/25/18 15:00 95 Room Air Physical Exam General Appearance: no apparent distress Respiratory/Chest: chest non-tender, lungs clear, normal breath sounds, no respiratory distress, no accessory muscle use Cardiovascular: regular rate, rhythm, no edema, no murmur Extremities: normal inspection, no pedal edema Neurologic/Psychiatric: no motor/sensory deficits, alert, normal mood/affect Laboratory Results Last 24 Hours Test 01/25/18 15:30 01/25/18 20:17 01/26/18 08:21 01/26/18 13:45 Hemoglobin 12.3 g/dL 11.5 g/dL 12.4 g/dL 11.8 g/dL Hematocrit 36.6 % 34.3 % 36.2 % 35.1 % White Blood Count 6.33 K/uL Red Blood Count 4.40 M/uL Mean Corpuscular Volume 82.3 fL Mean Corpuscular Hemoglobin 28.2 pg Mean Corpuscular Hemoglobin Concent 34.3 g/dl RDW Standard Deviation 40.5 fL RDW Coefficient of Variation 13.5 % Platelet Count 192 K/uL Mean Platelet Volume 8.9 fL Sodium Level 139 mmol/L Potassium Level 3.8 mmol/L Chloride Level 107 mmol/L Carbon Dioxide Level 26 mmol/L Anion Gap 7.0 mmol/L Blood Urea Nitrogen 12 mg/dl Creatinine 1.00 mg/dl Est Creatinine Clear Calc Drug Dose 78.3 ml/min Estimated GFR () 89.9 Estimated GFR (Non- 77.5 BUN/Creatinine Ratio 11.6 Random Glucose 86 mg/dl Calcium Level 8.4 mg/dl Assessment and Plan This is a 67 year old male with a past medical history of CAD s/p stenting, paroxysmal atrial fibrillation no longer on anticoagulation due to bleed risk, HTN, HLD; recent history of distal esophageal tear s/p clips - presents with an episode of hematemesis. Hematemesis/Upper GI Bleed with Recent Distal Esophageal Tear 01/26 - s/p EGD - endoclip found; esophageal stenosis and dilatation performed - will change to Protonix daily, regular diet - possible d/c today; GI input regarding restarting Plavix 01/25 - distal esophageal tear about 5 weeks prior s/p repair with 11 clips - presents with vomiting/hematemesis - H/H is stable, baseline is close to 13 - will start PPI drip - H/H q6hrs - GI consulted for possible EGD - hold aspirin/Plavix - IV fluids, NPO - no role for transfusion yet; monitor closely in tele CAD s/p stenting - had a stent about 6 months prior - due to GI bleed will hold aspirin + Plavix - holding Toprol due to sinus bradycardia Paroxysmal A. Fib - currently in sinus bradycardia - no longer on Eliquis due to GI bleeding HTN - hold Lisinopril, monitor BP DVT ppx - SCDs FULL CODE
[2018-01-26] MEDS ORDERED: ALBUTEROL HFA 8 GM INHALER INH PRN (15:15)
[2018-01-26 15:30] VITALS: BP 127/75; PULSE 60; TEMP 36.7; O2SAT 96
--- NOTE | 2018-01-26 16:13 | Discharge Instructions ---
Discharge Instructions Date of Service Jan 26, 2018. Admission Reason for Admission: UGIB Discharge Discharge Diagnosis / Problem: Upper GI Bleed - resolved Discharge Goals Goal(s): Decrease discomfort, Improve function, Diagnostic testing, Therapeutic intervention Activity Recommendations Activity Limitations: resume your previous activity . Instructions / Follow-Up Instructions / Follow-Up Please follow-up with Dr. Espinoza on Friday 12:25PM * Restart Plavix on January 27 * Continue all other meds * Repeat EGD in 4-5 weeks Current Hospital Diet Patient's current hospital diet: AHA Diet (Heart Healthy) Discharge Diet Recommended Diet: AHA Diet (Heart Healthy) Procedures Procedures Performed: EGD with dilatation and hemostasis Pending Studies Studies pending at discharge: no Medical Emergencies . Who to Call and When: Medical Emergencies: If at any time you feel your situation is an emergency, please call 911 immediately. . Non-Emergent Contact Non-Emergency issues call your: Primary Care Provider . . "Provider Documentation" section prepared by Halie Peterson. .
--- NOTE | 2018-01-26 16:15 | Discharge Summary ---
Discharge Summary Date of Service Jan 26, 2018. Discharge Summary Admission Date: Jan 25, 2018 at 13:17 Discharge Date: Jan 26, 2018 Discharge Disposition: Home Principal Diagnosis: Hematemesis/Upper GI Bleed - resolved with Recent Distal Esophageal Tear CAD s/p stenting Paroxysmal A. Fib HTN Medication Reconciliation Continued Medications: Albuterol Sulfate (Proair Respiclick) 108 Mcg/Act Aer 2 PUFFS INH Q4H PRN for SOB/Wheezing Aspirin (Aspirin EC Low Dose) 81 Mg Ectab 81 MG PO DAILY for 30 Days, #30 TAB Clopidogrel (Plavix) 75 Mg Tab 75 MG PO DAILY Hydrocodone/Acetaminophen 10MG/325MG (Kimberly 10MG/325MG) Tab 2 TAB PO TID PRN for Pain Lisinopril (Zestril) 2.5 Mg Tab 2.5 MG PO DAILY for 30 Days Metoprolol Succinate (Toprol Xl) 25 Mg Tab 25 MG PO DAILY, #30 TAB Pantoprazole (Protonix) 40 Mg Tab 40 MG PO DAILY, #30 TAB Rosuvastatin Calcium (Crestor) 10 Mg Tab 10 MG PO DAILY Admission Information HPI (per Admitting provider): This is a 67 year old male with a past medical history of CAD s/p stenting, paroxysmal atrial fibrillation no longer on anticoagulation due to bleed risk, HTN, HLD; recent history of distal esophageal tear s/p clips - presents with an episode of hematemesis. About 5 weeks prior, in [place], patient states he had a chicken bone that caused a tear in his distal esophagus; he became hypotensive and emergent EGD was performed. It took 11 clips to stop the bleeding - was to have a repeat EGD 6 weeks later (first week of January). He states that he drove back from [place] yesterday and he had a hard boiled egg. He had two more hard boiled eggs this morning. He had some vomiting afterwards and had a good amount of blood in it. States that he felt dizzy; similar to his previous bleeding. Denies chest pain/shortness of breath. Denies diarrhea/dark stools. Does not smoke or drink EtOH. Physical Exam (per Admitting): General Appearance: WD/WN, no apparent distress Head: normocephalic, atraumatic Eyes: normal inspection ENT: hearing grossly normal Neck: supple Respiratory/Chest: chest non-tender, lungs clear, normal breath sounds, no respiratory distress, no accessory muscle use Cardiovascular: regular rate, rhythm, no edema, no gallop, no JVD, no murmur , normal peripheral pulses Abdomen/GI: normal bowel sounds, non tender, soft, no organomegaly Back: normal inspection, no CVA tenderness, no muscle spasm, normal range of motion Extremities/Musculoskelatal: normal inspection, no calf tenderness, normal capillary refill, no pedal edema, normal range of motion Neurologic/Psych: 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 Hematemesis/Upper GI Bleed with Recent Distal Esophageal Tear 01/26 - s/p EGD - endoclip found; esophageal stenosis and dilatation performed - will change to Protonix daily, regular diet - possible d/c today; GI input regarding restarting Plavix 01/25 - distal esophageal tear about 5 weeks prior s/p repair with 11 clips - presents with vomiting/hematemesis - H/H is stable, baseline is close to 13 - will start PPI drip - H/H q6hrs - GI consulted for possible EGD - hold aspirin/Plavix - IV fluids, NPO - no role for transfusion yet; monitor closely in tele CAD s/p stenting - had a stent about 6 months prior - due to GI bleed will hold aspirin + Plavix - holding Toprol due to sinus bradycardia Paroxysmal A. Fib - currently in sinus bradycardia - no longer on Eliquis due to GI bleeding HTN - hold Lisinopril, monitor BP DVT ppx - SCDs FULL CODE Total time spent on discharge = 45 minutes This includes examination of the patient, discharge planning, medication reconciliation, and communication with other providers. Discharge Instructions Please follow-up with Dr. Espinoza on Friday 12:25PM * Restart Plavix on January 27 * Continue all other meds * Repeat EGD in 4-5 weeks
[2018-01-26 16:21] VITALS: BP 127/75; PULSE 60; TEMP 36.7; O2SAT 96
[2018-01-26 16:30] LABS: HEMATOCRIT 35.5 % (42-52); HEMOGLOBIN 12.2 g/dL (14.0-18.0)
[2018-01-27] MEDS ORDERED: METOPROLOL SUCC 25MG EXT REL TAB PO SCH (09:00)
[2018-01-27] MEDS ORDERED: LISINOPRIL 2.5 MG TAB PO SCH (09:00)
[2018-01-27] MEDS ORDERED: ROSUVASTATIN CALCIUM 10 MG TAB PO SCH (09:00)
[2018-01-27] MEDS ORDERED: PANTOprazole SOD 40 MG TAB PO SCH (09:00)
--- NOTE | 2018-01-28 11:32 | EDITING REQUIRED CODING QUERY ---
CODING QUERY To promote full compliance with coding requirements relating to patient care, provider participation is requested in all cases of death surveys coder uncertainty. Please assist us with the question(s) below: Coding Question(s): Patient admitted with upper GI bleed- s/p Berta Spencer tear _..EGD done this admission with placement of a clip for a superficial rent. Please check below the phrase that best describes the superficial esophageal rent. Thanks for your help! Johnson Yusuf [employer] [employer] [facility] Physician's Response(s): X The superficial esophageal rent was a result of the esophageal dilation The superficial esophageal rent was present on admission If not present on admission, the esophageal rent is an expected complication of the procedure. Other/ please document: Principal Diagnosis: "_that condition established after study, to be chiefly responsible for occasioning the admission of the patient to the hospital for care." Co-Existing Principal Diagnosis: "_when two or more diagnoses equally meet the criteria for principal diagnosis as determined by the circumstances of admission, diagnostic work up, and/or therapy provided, and the Alphabetic Index, Tabular List, or another coding guideline does not provide sequencing direction, any one of the diagnoses may be sequenced first." "When the physician has documented what appears to be a current diagnosis in the body of the record, but has not included the diagnosis in the final diagnostic statement, the physician should be asked whether the diagnosis should be added." (Source Coding [facility] 2 QTR90. p3-4)
== END 2018-01-26 16:52 | disposition home or self-care (01) | DRG 369 ==
LOC: C.EDB 10:27 → C.MED 13:17 → ENRESERV 14:11
PROVIDERS: ADMIT Family Medicine; ATTEND Family Medicine
PROC: 0W3P8ZZ Control Bleeding in Gastrointestinal Tract, Via Natural or Artificial Opening Endoscopic (ICD-10-PCS; principal; 2018-01-26 11:02)
PROC: 0D758ZZ Dilation of Esophagus, Via Natural or Artificial Opening Endoscopic (ICD-10-PCS; principal; 2018-01-26 11:02)
DX: K22.6 Gastro-esophageal laceration-hemorrhage syndrome (principal); K91.81 Other intraoperative complications of digestive system; N40.0 Benign prostatic hyperplasia without lower urinary tract symptoms; K22.2 Esophageal obstruction; I25.10 Atherosclerotic heart disease of native coronary artery without angina pectoris; K44.9 Diaphragmatic hernia without obstruction or gangrene; E78.5 Hyperlipidemia, unspecified; R13.10 Dysphagia, unspecified; Z98.1 Arthrodesis status; D64.9 Anemia, unspecified; I48.0 Paroxysmal atrial fibrillation; I10 Essential (primary) hypertension; Z95.5 Presence of coronary angioplasty implant and graft; Z79.82 Long term (current) use of aspirin; Y83.8 Other surgical procedures as the cause of abnormal reaction of the patient, or of later complication, without mention of misadventure at the time of the procedure; Y92.234 Operating room of hospital as the place of occurrence of the external cause